=== PATIENT | male | born 1945 | race Caucasian/White ===

== ENCOUNTER 2018-11-14 09:55 | Inpatient (IN) | payer OTHER, SELFPAY ==
[2018-11-04 09:56] VITALS: BMI 43.9
[2018-11-14] VITALS (16 sets, daily range): BP systolic 87–146; BP diastolic 45–85; PULSE 62–83; RESP 10–92; TEMP 36.5–37.1; O2SAT 93–98; BMI 43.9
--- NOTE | 2018-11-14 | DI.RAD.S_ITS ---
PROCEDURE: XR HIP W PEL IF DONE LT 2V INDICATIONS: POST OPERATIVE LEFT HIP TECHNIQUE: AP pelvis and lateral view of the left hip acquired. COMPARISON: None. FINDINGS: Bones: Patient is status post left hip arthroplasty, with hardware components in expected positions. The hip joint appears congruent. The visualized bony structures appear intact. Soft tissues: Overlying postoperative changes are noted. No suspicious soft tissue densities. IMPRESSION: Post left total hip arthroplasty changes with anatomic left hip alignment. Dictated by: Elan Bryant M.D. on 11/14/2018 at 16:04 Approved by: Elan Bryant M.D. on 11/14/2018 at 16:04
--- NOTE | 2018-11-14 10:26 | DI.RAD.S_ITS ---
PROCEDURE: XR PELVIS 1-2V INDICATIONS: post op left YULIA TECHNIQUE: Intra-operative view of the pelvis and hip acquired. COMPARISON: None. FINDINGS: Bones: Intraoperative devices prior to placement of arthroplasty prostheses are in expected positions. No fractures or suspicious bony lesions. Soft tissues: Overlying surgical retractors are present, along with other intraoperative changes. IMPRESSION: Expected intraoperative appearance Dictated by: Saul Maravilla M.D. on 11/14/2018 at 14:48 Approved by: Saul Maravilla M.D. on 11/14/2018 at 14:48
[2018-11-14] MEDS: VANCOMYCIN 1,000 MG/200 ML PIGGYBACK 200 MG IV (10:30)
[2018-11-14] MEDS: LACTATED RINGERS 1,000 ML 42 ML IV ×2 (10:30→14:08)
[2018-11-14] MEDS: PREGABALIN 75 MG CAPSULE PO (10:42)
[2018-11-14] MEDS: CELECOXIB 200 MG CAPSULE PO (10:42)
[2018-11-14] MEDS: ACETAMINOPHEN 325 MG TABLET 975 MG PO ×2 (10:43→20:50)
--- NOTE | 2018-11-14 11:24 | P.OP_ITS ---
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 Non-operative management has failed and the patient has requested total hip replacement. The risks, benefits and alternatives to surgery were discussed with the patient prior to proceeding. Risks discussed included, but were not limited to, failure to relieve pain, leg length discrepancy, dislocation, stiffness, infection, nerve damage, deep venous thrombosis, pulmonary embolism, stroke, coma, heart attack, permanent paralysis and , as well as the potential need for eventual revision of the prosthetic. 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 The patient received pre-operative antibiotics and was taken to the operating room and placed on the operative table in the right lateral decubitus position after satisfactory anesthesia. A court magistrate out was performed. The left leg was prepared from the ankle to the iliac crest with ChloroPrep in the usual fashion and draped through sterile drapes. The hip was approached through an approximately 24 cm incision centered over the greater trochanter and curving gently posteriorly as it went proximally. This was carried sharply to the fascia piotr, which was divided and retracted with a self retaining retractor. The trochanteric bursa was excised with care being taken to avoid the sciatic nerve, which was identified and protected throughout the case. The short external rotators were incised and the capsulomuscular flap was raised and tagged for later repair. The hip was dislocated, and a femoral neck osteotomy performed approximately 15 mm above the lesser trochanter. Retractors were placed around the femur. The canal was opened with a box cutting osteotome, followed by a T handled reamer and a lateralizing reamer. The chili pepper broach was then used, followed by sequential broaching until there was good stability of the broach in the femur. Retractors were placed to expose the acetabulum. The labrum and central soft tissues were removed. Reaming was performed initially going up in 2 mm increments, then 1 mm increments until good bite was obtained with an odd sized reamer. The cup 1 mm larger than the last reamer was then inserted using the ap propriate anteversion guides. A trial neutral liner was placed. The broach was placed in the canal. A trial head and neck were then placed and the hip relocated and checked for leg length and stability. An intraoperative film confirmed the component position and no evidence of fracture. The patient was stable in the position of sleep, of squatting, and could be put through a range of motion with 45 degrees internal rotation without dislocation. At 90 degrees flexion, internal rotation to 70 was possible before dislocation. This was felt to be satisfactory and the appropriate components were opened, and the trials were removed. The acetabulum was further stabilized with a single 15mm screw. The acetabular liner was impacted into position. The final stem was then impacted into the prepared femoral canal. A brief Betadine soak was performed while trialing with head options. The hip was meticulously irrigated with normal saline. Finally the femoral head was impacted onto the stem. The acetabulum was cleared of all material and the hip relocated one final time. The capsulomuscular flap was then repaired to the greater trochanter though an awl hole using the tag sutures. The short external rotators were repaired with a nonabsorbable suture. A deep drain was placed and brought out anteriorly. The fascia piotr was closed with Vicryl. The subcutaneous layer was closed with barbed sutures and SteriStrips. A Nito dressing was applied and the patient was taken to recovery having tolerated the procedure well. Complications: none Post-operative Condition: stable Disposition: Acute Care Plan for aftercare: The patient will be maintained on a standard total hip replacement protocol with weight bearing as tolerated and posterior hip precautions. The patient will receive Aspirin and sequential compression devices for DVT prophylaxis. The patient will be discharged home when safe for the home environment.
--- NOTE | 2018-11-14 11:24 | PM.PREOP ---
Pre-operative Note Interval Note History & Physical reviewed/Exam performed by Physician: Yes Changes to H&P: No
[2018-11-14] MEDS: CEFAZOLIN 2 GM/100 ML FROZ.PIGGY IV ×2 (11:46→19:36)
[2018-11-14] MEDS: TRANEXAMIC ACID 1,000 MG VIAL 2000 MG INJ ×2 (12:45→14:31)
[2018-11-14] MEDS: BUPIVACAINE LIPOSOME 266 MG/20 ML VIAL INJ (12:46)
[2018-11-14] MEDS: BUPIVACAINE 0.25% W/ EPI 30 ML VIAL 60 ML INJ (12:46)
[2018-11-14] MEDS: SODIUM CHLORIDE IRRIG SOLUTION 250 ML, POVIDONE-IODINE SPONGE STICKS 1 APPLIC IRR (12:47)
[2018-11-14] MEDS: EPINEPHrine 1 MG/ML AMPUL IV (12:48)
--- NOTE | 2018-11-14 13:00 | SUR.OPER ---
Lateral on padded OR bed. Gel axillary roll. Arms secured on padded armboard with pillow supporting top arm. Padded hip positioner braces x4 - anterior and posterior chest and pelvis. Additional gel pad used anterior pelvis. Gel pad under bottom leg from knee to foot and secured with tape over sheet.
[2018-11-14] MEDS: OXYCODONE/ACETAMINOPHEN 5/325 TABLET 1 TAB PO (15:40)
--- NOTE | 2018-11-14 15:42 | SUR.PHASEI ---
Patient HWANG's x 4. Rates pain 04/21. Gave po pain medication prophylactically. Patient did not have a spinal. Meggang CDI.
[2018-11-14] MEDS: LACTATED RINGERS 1,000 ML 125 ML IV (16:00)
[2018-11-14] MEDS: ATORVASTATIN 10 MG TABLET PO (20:49)
[2018-11-14] MEDS: DOCUSATE 100 MG CAPSULE PO (20:49)
[2018-11-14] MEDS: ASPIRIN EC 81 MG TABLET PO (20:49)
[2018-11-14] MEDS: OXYCODONE IR 5 MG TABLET PO (21:51)
[2018-11-15] VITALS (7 sets, daily range): BP systolic 109–147; BP diastolic 56–76; PULSE 67–95; RESP 16–20; TEMP 36.8–37.4; O2SAT 93–96
[2018-11-15] MEDS: LACTATED RINGERS 1,000 ML 125 ML IV (01:01)
--- NOTE | 2018-11-15 01:09 | PC.NURSE ---
Addendum entered by Tonie Joya R.N. 11/15/18 05:01: Patient complained of 3/10 left hip pain earlier and was medicated with Oxycodone and now states pain is improving and down to 2/10 Addendum entered by Tonie Joya R.N. 11/15/18 02:09: When patient gotten up to urinate hemovac tubing became disconnected. Reconnected and hemovac recompressed; will monitor to see if drain still functional. Original Note: Patient is alert and oriented. Breath sounds CTA with O2 sat is 94%; using home CPAP. HRR. Denies nausea. BT present and abdomen is soft but denies flatus. Voiding per urinal; denies dysuria, frequency or urgency. Is able to move self in bed and gets up to bathroom with walker and 1 assist. PIERCE dressing to left hip is CDI; hemovac is intact and compressed. Denies any pain. CMS intact bilaterally. Wearing bilateral calf SCD's. Fall risk score is moderate; bed alarm is activated.
[2018-11-15] MEDS: CEFAZOLIN 2 GM/100 ML FROZ.PIGGY IV (04:03)
[2018-11-15] MEDS: OXYCODONE IR 5 MG TABLET PO ×3 (04:32→19:48)
[2018-11-15 05:10] LABS: Hematocrit 39.7 % (41-53); Hemoglobin 13.6 g/dL (13.5-17.5)
[2018-11-15] MEDS: DOCUSATE 100 MG CAPSULE PO ×2 (08:26→19:48)
[2018-11-15] MEDS: ACETAMINOPHEN 325 MG TABLET 975 MG PO ×2 (08:26→19:48)
[2018-11-15] MEDS: MELOXICAM 7.5 MG TABLET 15 MG PO (08:27)
[2018-11-15] MEDS: ASPIRIN EC 81 MG TABLET PO ×2 (08:27→19:47)
[2018-11-15] MEDS: FUROSEMIDE 20 MG TABLET PO (08:27)
[2018-11-15] MEDS: CITALOPRAM 20 MG TABLET PO (08:27)
[2018-11-15] MEDS: DOXAZOSIN 2 MG TABLET 1 MG PO (08:28)
--- NOTE | 2018-11-15 08:39 | PM.PNPO.1 ---
Subjective Subjective Date Patient Seen: 11/15/18 Time Patient Seen: 08:39 Interval history: Hospital day 2, postop day 1 following left posterior total hip arthroplasty by Dr. Hooker. Patient is been stable postoperatively. He states he has been out of bed to the bathroom 4 times since surgery. He has not had any physical therapy yet. Does need help getting in and out of bed. Patient lives in a 40 ft 5th wheel trailer and has 4 steps to get into the trailer. Also steps to go up to the bedroom area. He does have physical therapy scheduled at [facility] I does have a Hemovac in place which became during the night and was reattached. Exam Vital Signs (past 8 hours): - 11/15/18 05:37 11/15/18 07:35 Temperature 98.6 F 98.7 F Pulse Rate 71 67 Respiratory Rate 16 17 Blood Pressure 109/71 118/76 Pulse Oximetry 94 96 Oxygen Delivery Method CPAP Oxygen Flow Rate 0 Narrative Exam Narrative: Alert, oriented no acute distress resting in bed. Legs. The code dressing to left hip area is dry without drainage. Good VAC. Hemovac in place. No calf pain or swelling. Pulses symmetrical. Objective Labs Result Diagrams: 11/15/18 04:40 Labs: Laboratory Results - last 24 hr 11/15/18 04:40 Hgb 13.6 Hct 39.7 L Assessment & Plan Post-op Postoperative Procedures: Procedures Operation Date: 11/14/18 12:00 Actual Procedures Side Surgeon p Total Hip Arthroplasty Left Letitia Yvette Hooker MD plan: Will have patient work with PT today to make sure he is stable since he lives in a 5th wheel trailer and has steps to use. Anticipate DC Hemovac later today if drainage has stopped. Anticipate discharge home tomorrow if he is stable. He is a [facility] and does have prescription at home for oxycodone. Quality VTE Deep Vein Thrombosis/Pulmonary Embolism Present on Admission: No
--- NOTE | 2018-11-15 11:52 | PT.IIE ---
Current Diagnoses Unilateral primary osteoarthritis, left hip (11/14/18) Surgery Performed Operation Date: 11/14/18 12:00 Actual Procedures p Total Hip Arthroplasty(Left) - Letitia Hooker MD Surgical History (Last Updated 11/04/18 @ 10:18 by Pamela Tucker RN) H/O vasectomy (Acute) History of carpal tunnel release of both wrists (Acute) Hx of arthroscopy of left knee (Acute) Hx of hernia repair (Acute) Hx of tonsillectomy (Acute) Medical History (Last Updated 11/04/18 @ 14:14 by Pamela Tucker RN) Arthritis (Acute) BPH (benign prostatic hyperplasia) (Acute) Depression (Acute) Enlarged prostate (Acute) Hearing impaired (Acute) Hematuria (Acute) HLD (hyperlipidemia) (Acute) HTN (hypertension) (Acute) Impaired fasting glucose (Acute) Kidney stone (Acute ~09/2018) Lower back injury (Acute) Nasal fracture (Acute) RODOLFO on CPAP (Acute) Osteoarthritis (Acute) RBBB (right bundle branch block) (Acute) Physical Therapy Inpatient Evaluation/Re-Eval M1 PT/OT-IP Prior Functional Status Start: 11/15/18 08:29 Freq: NEEDED Status: Active Protocol: Document 11/15/18 09:25 (Rec: 11/15/18 11:51 [email or web address]) Medical Review Prior Functional Status Medical History Reviewed Yes Diet/Fluid Consistency Regular Communication Able to make needs known. No deficits noted. Mobility and Gait Pt has poor mobility and mostly home bound prior to sx due to his chronic LBP and B hip pain. Pt uses lift chair for sit to stand and power scooter for community mobility . He usually sleeps on his L side and get up from bed by holding the counter and bathroom next to him. He stated he uses furniture to cruise around his RV / quad cane. He also uses concessions manager and sock aid. Activities of Daily Living and IADL's Pt is mod independent for ADLs . does cooking, laundry and his dtr does changing propane bottle and grocery shop. Social History Household Members spouse Living Arrangements RV Number of Floors (Floors) One Floor Number of Stairs To Enter/Railing? 3 FANNY with B rails 2 inch step to bathroom. Home Environment Walk in Shower,Built-In Shower Seat Home Equipment Four Wheel Walker,Quad Cane, Crutches,Power Wheelchair/ Scooter,Raised Toilet Seat Without Armrests,Hand Held Shower,Logging Truck Driver,Sock Aid,Grab Bars In Shower Employment Status Retired Additional Social History Comment Pt lives with his in a [facility] in [place] across the [address] of [facility]. His dtr is the staff weapons officer of [facility] which he will have his outpatient rehab. M2 PT-IP Current Condition Start: 11/15/18 08:29 Freq: NEEDED Status: Active Protocol: Document 11/15/18 09:25 HH (Rec: 11/15/18 11:51 [email or web address]) Physical Therapy Current Condition Current Condition Evaluation Date 11/15/18 Treatment Diagnosis L YULIA( post), difficulty in walking Onset Date 11/14/18 Precautions Posterior Hip Precautions No Hip Flexion > 90 degrees,No Hip Internal Rotation,No Hip Adduction Weight Bearing Status Weight Bearing Status Weight Bear as Tolerated M3 PT-IP Subjective Start: 11/15/18 08:29 Freq: NEEDED Status: Active Protocol: Document 11/15/18 09:25 HH (Rec: 11/15/18 11:51 [email or web address]) Subjective Physical Therapy Visit Type Type Initial Evaluation Visit Start Time 09:20 Visit Stop Time 09:55 Total Visit Minutes 35 Number of ELDER ASSISTANT Visits 0 Physical Therapy Visit Comments Patient Comments Pt agrees to mobilize with PT Patient Goals To return home with his . Therapy Pain Assessment Pain When Pain Assessed At Rest Pain Present Pain Present Pain Reported Location Left Hip Intensity 3 Scale Used Numeric (1 - 10) Description Acute Pain Behaviors Facial Grimacing Pain Management Techniques Apply Cold,Modification of Treatment,Re-positioning, Timing of Activity with Medications M4 PT-IP Mobility and Gait Start: 11/15/18 08:29 Freq: NEEDED Status: Active Protocol: Document 11/15/18 09:25 HH (Rec: 11/15/18 11:51 [email or web address]) PT-Bed Mobility Assessment Supine to Sit Supine to Sit Maximum Assistance,2 Person Assistance,Head of Bed Elevated,Bedrails Scooting Scooting to Edge of Bed Maximum Assistance PT-Transfer Assessment Sit to and From Stand Sit to and from Stand Minimal Assistance,2 Person Assistance Equipment Transfer Assistive Device Gait Belt,Front Wheeled Walker Transfers Transfer Destination Bed,Chair,Toilet Transfer Technique Stand Step Pivot Transfer Ability Level of Assist Minimal Assistance,2 Person Assistance Comments Mobility Comments Pt's BP at 110s/ 60s and HR 80s during session. Pt stated he has a bad back and hip and getting OOB is the most difficult task for him. Pt needed to attempt 4 times for supine to sit with 1pa this session. PT had to assist with pivoting his LLE and support his upper body due to his pain and poor core strength. Pt appears very SOB during trials and needed 2 mins for rest. Pt also needed max A to use bed pad for scooting towards EOB. However, he was able to stand up from EOB with min A but PT had to stabilize walker for pt to pull to stand. Pt amb from EOB to bathroom and out to hallway for a total of 50 feet. Pt amb slowly with step to pattern and he did state My knee is getting less stiff. Pt then transferred back to bedside chair with poor eccentric control. Gait Assessment Gait Gait Assistance Required: Contact Guard Assist Distance (Feet) 50 Able to Maintain Weight Bearing Status Yes During Gait Assistive Devices Assistive Device None,Gait Belt,Front Wheeled Walker Orthotic/Prosthetic Devices or Brace: No Gait Deviations General Gait Pattern Antalgic,Decreased Stride Length,Decreased Feet Clearance,Step-to Gait Factors Limiting Gait Function Factors Limiting Gait Function Decreased Activity Tolerance, Decreased Strength,Limited Range of Motion,Pain,Poor Balance,Poor Safety Awareness Comments Gait Comments see mobility comments Stair Climbing Assessment Comments Stair Climbing Comments did not assess PT-Balance Assessment Sitting Balance and Reactions Static Sitting Balance Ability Normal Dynamic Sitting Balance Ability Normal Standing Balance and Reactions Static Standing Balance Ability Good Dynamic Standing Balance Ability Good Device Used FWW M5 PT-IP Objective Assessments Start: 11/15/18 08:29 Freq: NEEDED Status: Active Protocol: Document 11/15/18 09:25 (Rec: 11/15/18 11:51 [email or web address]) Orientation Orientation/Cognition Level of Alertness Alert Orientation Name,Age,Birthday,Month,Date, Year,Day of Week,Place, Situation Language Function Ability No Deficits Noted Safety Awareness Understands Safety Issues Memory Description No Deficits Noted Gross Range of Motion Upper Extremity ROM Assessment Within Functional Limits Lower Extremity ROM Assessment Left Impaired Strength Upper Extremity Strength Assessment Within Functional Limits Lower Extremity Strength Assessment Left Impaired Hip 4-/5 Knee 3+/5 Coordination Assessment Gross Coordination Gross Coordination WNL Sensation Assessment Sensation Gross Sensation WNL Muscle Tone Muscle Tone WNL Yes M6 PT-IP Treatment Start: 11/15/18 08:29 Freq: NEEDED Status: Active Protocol: Document 11/15/18 09:25 HH (Rec: 11/15/18 11:51 [email or web address]) Physical Therapy Treatment Exercises Exercises Quad Sets,Heel Slides Education Education Provided Precautions,Weight Bearing Status,Post-Op Packet,Safety M7 PT-IP Assessment and Plan Start: 11/15/18 08:29 Freq: NEEDED Status: Active Protocol: Document 11/15/18 09:25 HH (Rec: 11/15/18 11:51 [email or web address]) PT Summary Assessment and Plan Potential Rehabilitation Potential Excellent Status of Condition at Evaluation Evolving Summary Impairments Pain,ROM,Strength,Balance,Bed Mobility,Transfers,Gait, Activity Tolerance Assessment Summary Pt is a low complexity who is s/p L YULIA with posterior approach from yesterday. Upon assessment, pt has significant difficulty performing supine to sit (max A x 2) due to his LBP, B hip pain. He also needed PT's assistance to stabilize the walker for pt to pull to stand. He did amb approx 50 ft with CGA but overall he is very slow with poor activity tolerance due to his inactive lifestyle (pt was mostly homebound and very sedentary). However, pt has adequate DMEs at home with multiple sit to stand lifters and recliners that he could sleep and transfers without difficulty, but he has to be able to climb 3 FANNY with B rails CGA prior to d/c home ( his RV). Otherwise, SNF will be a good option to improve his mobility and strength. Goals Bed Mobility Goal Minimal Assistance Transfer Goal Contact Guard Assistance,Front Wheeled Walker Gait Goal Contact Guard Assistance,Front Wheel Walker Gait Distance 100 Other Goals climb 3 steps with B rails CGA Days to Meet Goals 5 Frequency of Treatment Frequency Of Treatment Twice a Day Treatment Plan Physical Therapy Treatment Plan Bed Mobility Training,Transfer Training,Gait Training, Therapeutic Exercise,Balance Retraining,Post Op Education, Discharge Planning,Hot or Cold Pack,Neuromuscular Re-ed Other Recommendations and Next Treatment Bed mob as kalli Focus sit to stand training gait training as kalli Recommendations To Nursing Amount of Assist Needed 2 Person Assist Discharge Recommendations PT Discharge Recommendations Home with 04/09 Assist,SNF Rehab,Outpatient PT Other Discharge Recommendations Depends on pt progress, SNF if pt unable to clear steps for his RV.
--- NOTE | 2018-11-15 14:50 | PT.IPTN ---
Current Diagnoses Unilateral primary osteoarthritis, left hip (11/14/18) Surgery Performed Operation Date: 11/14/18 12:00 Actual Procedures p Total Hip Arthroplasty(Left) - Letitia Hooker MD Physical Therapy Treatment Note M2 PT-IP Current Condition Start: 11/15/18 08:29 Freq: NEEDED Status: Active Protocol: Document 11/15/18 09:25 HH (Rec: 11/15/18 11:51 HH [email or web address]) Physical Therapy Current Condition Current Condition Evaluation Date 11/15/18 Treatment Diagnosis L YULIA( post), difficulty in walking Onset Date 11/14/18 Precautions Posterior Hip Precautions No Hip Flexion > 90 degrees,No Hip Internal Rotation,No Hip Adduction Weight Bearing Status Weight Bearing Status Weight Bear as Tolerated M3 PT-IP Subjective Start: 11/15/18 08:29 Freq: NEEDED Status: Active Protocol: Document 11/15/18 14:50 GGD (Rec: 11/15/18 15:56 GGD [id number]) Subjective Physical Therapy Visit Type Type Treatment Note Visit Start Time 14:14 Visit Stop Time 14:53 Total Visit Minutes 39 Number of CHICKEN CATCHER Visits 1 Physical Therapy Visit Comments Patient Comments Pt willing to work with therapy. Pt plans on sleeping in lift chair. Therapy Pain Assessment Pain When Pain Assessed At Rest Pain Present Pain Present Pain Reported M4 PT-IP Mobility and Gait Start: 11/15/18 08:29 Freq: NEEDED Status: Active Protocol: Document 11/15/18 14:50 GGD (Rec: 11/15/18 15:56 GGD [id number]) PT-Transfer Assessment Sit to and From Stand Sit to and from Stand Minimal Assistance,1 Person Assistance,Use of Upper Extremities Equipment Transfer Assistive Device Gait Belt,Front Wheeled Walker Orthotic/Prosthetic Devices or Brace: Yes Transfers Transfer Destination Bed Transfer Ability Level of Assist Minimal Assistance,1 Person Assistance,Use of Upper Extremities Gait Assessment Gait Gait Assistance Required: Contact Guard Assist Distance (Feet) 70 Able to Maintain Weight Bearing Status Yes During Gait Assistive Devices Assistive Device Gait Belt,Front Wheeled Walker Gait Deviations General Gait Pattern Antalgic,Decreased Stride Length,Decreased Feet Clearance,Step-to Gait Factors Limiting Gait Function Factors Limiting Gait Function Decreased Activity Tolerance, Decreased Strength,Limited Range of Motion,Pain,Poor Balance,Poor Safety Awareness M5 PT-IP Objective Assessments Start: 11/15/18 08:29 Freq: NEEDED Status: Active Protocol: Document 11/15/18 09:25 HH (Rec: 11/15/18 11:51 HH [email or web address]) Orientation Orientation/Cognition Level of Alertness Alert Orientation Name,Age,Birthday,Month,Date, Year,Day of Week,Place, Situation Language Function Ability No Deficits Noted Safety Awareness Understands Safety Issues Memory Description No Deficits Noted Gross Range of Motion Upper Extremity ROM Assessment Within Functional Limits Lower Extremity ROM Assessment Left Impaired Strength Upper Extremity Strength Assessment Within Functional Limits Lower Extremity Strength Assessment Left Impaired Hip 4-/5 Knee 3+/5 Coordination Assessment Gross Coordination Gross Coordination WNL Sensation Assessment Sensation Gross Sensation WNL Muscle Tone Muscle Tone WNL Yes M6 PT-IP Treatment Start: 11/15/18 08:29 Freq: NEEDED Status: Active Protocol: Document 11/15/18 14:50 GGD (Rec: 11/15/18 15:56 GGD [id number]) Physical Therapy Treatment Exercises Exercises Ankle Pumps,Gluteal Sets,Quad Sets,Short Arc Quads Education Education Provided Precautions M7 PT-IP Assessment and Plan Start: 11/15/18 08:29 Freq: NEEDED Status: Active Protocol: Document 11/15/18 14:50 GGD (Rec: 11/15/18 15:56 GGD [id number]) PT Summary Assessment and Plan Summary Assessment Summary Pt improving slowly with mobility. He had heavy use of UE on FWW with gait. He plans on sleeping in lift chair due to difficulty with bed mobility. Frequency of Treatment Frequency Of Treatment Twice a Day Treatment Plan Physical Therapy Treatment Plan Bed Mobility Training,Transfer Training,Gait Training, Therapeutic Exercise,Balance Retraining,Post Op Education, Discharge Planning,Hot or Cold Pack,Neuromuscular Re-ed Other Recommendations and Next Treatment stair training. Focus Recommendations To Nursing Amount of Assist Needed 1 Person Assist Discharge Recommendations PT Discharge Recommendations Home with Assistance, Outpatient PT Equipment Needed for Home Before FWW Discharge
--- NOTE | 2018-11-15 15:48 | OT.IP.TRT ---
Current Diagnoses Unilateral primary osteoarthritis, left hip (11/14/18) Surgery Performed Operation Date: 11/14/18 12:00 Actual Procedures p Total Hip Arthroplasty(Left) - Letitia Hooker MD Occupational Therapy Treatment Note M3 OT- IP Subjective and Pain Start: 11/15/18 15:44 Freq: Status: Active Protocol: Document 11/15/18 15:44 [facility] (Rec: 11/15/18 15:48 [facility] [id number]) OT- Subjective Occupational Therapy Visit Type Type Patient Refusal Notes Pt just finished seeing PLASTIC JOINT MAKER , tired and not wanting to get up again. Spoke to pt about OT needs and initiated training for hip precaution needs. Pt has all equipment needs. Therefore to do OT eval and shower tomorrow with pt. NO charge.
[2018-11-15] MEDS: TRAZODONE 100 MG TABLET PO (19:48)
[2018-11-15] MEDS: ATORVASTATIN 10 MG TABLET PO (19:49)
[2018-11-16 01:56] VITALS: BP 125/55; PULSE 79; RESP 16; TEMP 36.8; O2SAT 96
--- NOTE | 2018-11-16 02:00 | PC.NURSE ---
Addendum entered by Tonie Joya R.N. 11/16/18 05:55: Has not been up tonight to void but denies urge to void. States I'll pee when I get up. Denies any pain this morning. States he slept well. Original Note: Patient is alert and oriented. Breath sounds CTA with RA sat of 96%; using CPAP to sleep. HRR. Denies nausea. BT present and is passing flatus. Voiding per urinal; denies dysuria, frequency or urgency. Able to move self in bed. Transfers out of bed requiring 2 assist but once standing up is able to stand with walker and 1 assist. PIERCE dressing intact with no drainage. Hemovac no longer compressed/suctioning so d'cd. Denies pain in hip. Wearing bilateral calf SCD's. CMS is intact. Fall risk score is moderate; bed alarm is activated.
[2018-11-16 06:22] VITALS: BP 131/58; PULSE 85; RESP 16; TEMP 36.9; O2SAT 94
[2018-11-16 08:35] VITALS: BP 137/60; PULSE 87; RESP 20; TEMP 37.9; O2SAT 95
[2018-11-16] MEDS: ASPIRIN EC 81 MG TABLET PO (08:59)
[2018-11-16] MEDS: OXYCODONE IR 5 MG TABLET PO (08:59)
[2018-11-16] MEDS: CITALOPRAM 20 MG TABLET PO (08:59)
[2018-11-16] MEDS: DOCUSATE 100 MG CAPSULE PO (08:59)
[2018-11-16] MEDS: MELOXICAM 7.5 MG TABLET 15 MG PO (08:59)
[2018-11-16] MEDS: FUROSEMIDE 20 MG TABLET PO (08:59)
[2018-11-16] MEDS: DOXAZOSIN 2 MG TABLET 1 MG PO (09:00)
[2018-11-16] MEDS: ACETAMINOPHEN 325 MG TABLET 975 MG PO (09:00)
[2018-11-16] MEDS: SODIUM CHLORIDE 0.9% FLUSH 10 ML IV (09:01)
--- NOTE | 2018-11-16 10:04 | PC.NURSE ---
Pt just had a shower, he is a 2 person assist to get up from bed to walker. He is more of a 1 person assist when he is up and walking. He had a shower and did most of his washing by himself. Back to the chair and sitting up. He does have a problem with sliding down in his chair and bed constantly. states that he does this often. She is here to do stairs with physical therapy. Given 1 oxycodone earlier for pain and working with PT...Helpful with discomfort.
[2018-11-16 11:30] VITALS: BP 124/63; PULSE 88; RESP 22; TEMP 37.1; O2SAT 94
--- NOTE | 2018-11-16 12:27 | CM.DANOTE ---
DCP Assessment: EMR reviewed. Patient is a 73 year old male who was admitted to IP for Lt YULIA preformed by Dr. Hooker. Met with patient and at bedside explained CM/RNs role. Pt is alert and oriented. Pt is I for ADL's at baseline. Patient and (William) live in a 5th wheel trailer in [place] and is a lal path patient. Patient had a PT evaluation and was cleared to return home with assistance and has OP PT set up [facility] week. Pt has FWW at home and a cane to help with stairs. Insurance: 1st payer: [place] 2nd: Self pay DC plan: Is for Patient to return home with assistance from (william) and F/U with OP PT in one week. NO identified d/c planning needs noted at this time. Richelle Hooker RN Discharge Planning/Care Management CM Discharge Assessment Start: 11/16/18 12:26 Freq: Status: Active Protocol: Document 11/16/18 12:26 HS (Rec: 11/16/18 12:27 [id number]) Discharge Planning Assessment Assigned Board Certified Behavioral Analyst Richelle Hooker RN DPOA/Assigned Designee Name William Conway Contact Information [phone] Advance Directives? Yes Advance Directives on File No History Provided By Patient,Family Member Prior Living Arrangements RV Household Members spouse Type of transporation used prior to Drives own vehicle admit Independent with ADL's Yes Is patient alert and oriented? Yes Caregiver for Another No Patient/Family Preference OP PT Therapy Discharge Plan Home Whiteboard Updated in Patient Room with Yes name and ext. # of Board Certified Behavioral Analyst Review Status In Process Next Review Type Continued Stay Review Pre-Anesthesia Assessment Start: 11/04/18 09:56 Freq: Status: Complete Protocol: Document 11/04/18 09:56 CAB (Rec: 11/04/18 10:58 CAB [id number]) Pre-Anesthesia Assessment Patient Information Reviewed Via Phone Assessment Assessment Completed With Patient Diagnostic Results BMP/CMP,CBC,EKG,Urinalysis Comment Outside labs/EKG scanned to record Primary Care Provider Viki Reddy Medical Clearance Received Yes Seen Specialist in Last 12 Months Yes Specialist Seen Orthopedist,Urologist Comment Pre-op clearance 04/23/18 scanned to record Primary Language [place]i [employer] Clerk Required No Height 175.26 cm Weight 135.171 kg Body Mass Index (BMI) 43.9 Hearing Ability Hard of Hearing,Use of Hearing Aid Visual Assist Glasses Dentition Type Teeth, Natural Present,Teeth, Broken,Partial- Lower Barriers to Learning Auditory,Memory Hx Anesthesia Reactions No Hx Family Anesthesia Reaction No Hx Malignant Hyperthermia No Hx Blood Transfusions No Anesthesia Review Requested No alcohol intake never Smoking Status Former smoker Tobacco type cigarettes how long ago did patient quit smoking Quit 25 years ago Substance Use Type other Comment CBD gummie Pain Present Pain Reported Musculoskeletal Symptoms Abnormal Gait,Back Pain, Difficulty Walking,Joint Pain, Limited Range of Motion,Muscle Weakness History of Falling (Recent or History of No ) Patient is completely paralyzed or No completely immobile Prosthesis or Orthotic Device Cane,Crutches Mental Status Oriented to own ability Is patient on oxygen? No Does patient have MEJIA/SOB Yes Hx Sleep Apnea Yes CPAP/BIPAP use prescribed and used routinely Will Bring CPAP/BIPAP DOS Yes Currently Taking a Beta Marah No Can You Climb a Flight of Stairs Without No SOB Hx Chest Pain No Hx SOB Yes Hx Syncope or Dizziness No Anti-Coagulant Therapy No Has a Multi Line Claims Adjuster No Cardiac Testing Yes: Zulahooiscan @ [facility] 05/21/18-low risk, EF 61% Hx Pacemaker/ICD No Pacemaker Rep Required? No Comment Lexiscan scanned to record Diet Type At Home Regular dysphagia No Urinary Catheter Present No Hx Urinary Self Catheterization No Diabetes No HgbA1C 5.3 Date 09/20/18 Hx Drug Resistant Organism No Presence of External or Internal Medical Yes: CPAP Devices Have you traveled outside the [facility] in the last 30 days? Marital Status Lives With spouse Prior Living Arrangements RV Number of Floors (Floors) One Floor Support System Child/Children,Spouse Does the Patient Have Assistance After Yes Surgery Patient Discharge Plan Description Return Home Comment Pt has not been advised on length of stay per Surgeon Feels Safe in Current Environment Yes Been Physically Hurt or Threatened By a No Person in Current Environment Do you have thoughts of harming yourself None or others? Are you currently considering suicide? No Do you have a plan to hurt yourself or No Plan others? Do You Have Any Spiritual Beliefs That No May Affect Your HC Choices? Do You Have Any Cultural Practices That No May Affect Your HC Choices? Comment Amish Who Can We Speak to About Patient's Care Family, friends Identifying Code for Release of Patient Declines to issue Information Health Care Proxy/Next of Kin William () Health Care Proxy Emergency Contact Name William () Emergency Contact Advance Directives? Yes Advance Directives on File No Requested Patient Bring Advanced Yes Directives DOS PAC Instructions Bring CPAP/BIPAP,Durable medical equipment,Medications to take/avoid,Nasal antibiotic ,No ETOH/petroleum product on skin DOS,NPO,Post-op transportation,Pre-surgical wash,Sturdy shoes/comfortable clothes,Do not bring valuables and remove jewelry
--- NOTE | 2018-11-16 13:03 | PT.IPTN ---
Current Diagnoses Unilateral primary osteoarthritis, left hip (11/14/18) Surgery Performed Operation Date: 11/14/18 12:00 Actual Procedures p Total Hip Arthroplasty(Left) - Letitia Hooker MD Physical Therapy Treatment Note M2 PT-IP Current Condition Start: 11/15/18 08:29 Freq: NEEDED Status: Active Protocol: Document 11/16/18 11:25 MB (Rec: 11/16/18 13:03 MB [id number]) Physical Therapy Current Condition Precautions Posterior Hip Precautions No Hip Flexion > 90 degrees,No Hip Internal Rotation,No Hip Adduction Weight Bearing Status Weight Bearing Status Weight Bear as Tolerated M3 PT-IP Subjective Start: 11/15/18 08:29 Freq: NEEDED Status: Active Protocol: Document 11/16/18 11:25 MB (Rec: 11/16/18 13:03 MB [id number]) Subjective Physical Therapy Visit Type Type Treatment Note Visit Start Time 11:25 Visit Stop Time 11:50 Total Visit Minutes 25 Number of SCREENER OPERATOR Visits 1 Physical Therapy Visit Comments Patient Comments Let's go home! Patient Goals To go home today. M4 PT-IP Mobility and Gait Start: 11/15/18 08:29 Freq: NEEDED Status: Active Protocol: Document 11/16/18 11:25 MB (Rec: 11/16/18 13:03 MB [id number]) PT-Transfer Assessment Sit to and From Stand Sit to and from Stand Independent Equipment Transfer Assistive Device Gait Belt,Front Wheeled Walker Transfers Transfer Destination Wheelchair Transfer Ability Level of Assist Independent Comments Mobility Comments Heavy use of UEs Gait Assessment Gait Gait Assistance Required: Independent Distance (Feet) 20 Able to Maintain Weight Bearing Status Yes During Gait Assistive Devices Assistive Device Gait Belt,Front Wheeled Walker Gait Deviations General Gait Pattern Decreased Stride Length, Decreased Feet Clearance,Step- to Gait Factors Limiting Gait Function Factors Limiting Gait Function Decreased Activity Tolerance, Decreased Strength,Limited Range of Motion,Pain,Poor Balance,Poor Safety Awareness Stair Climbing Assessment Evaluation Level of Assist On Stairs Standby Assistance Devices Stair Climbing Assistive Devices Left Railing,Right Railing Technique/Endurance Stair Climbing Direction Ascend Stair Climbing Technique Step to Step Number of Steps Climbed 3 Stair Climbing Set # Repetitions (reps) 1 Comments Stair Climbing Comments Ascend and descend 3 steps with 2 rails and step-to edouard, SBA and pt will have SBA at home PT-Balance Assessment Sitting Balance and Reactions Static Sitting Balance Ability Normal Dynamic Sitting Balance Ability Normal Standing Balance and Reactions Static Standing Balance Ability Good Dynamic Standing Balance Ability Good Device Used FWW M5 PT-IP Objective Assessments Start: 11/15/18 08:29 Freq: NEEDED Status: Active Protocol: Document 11/15/18 09:25 HH (Rec: 11/15/18 11:51 HH [id number]) Orientation Orientation/Cognition Level of Alertness Alert Orientation Name,Age,Birthday,Month,Date, Year,Day of Week,Place, Situation Language Function Ability No Deficits Noted Safety Awareness Understands Safety Issues Memory Description No Deficits Noted Gross Range of Motion Upper Extremity ROM Assessment Within Functional Limits Lower Extremity ROM Assessment Left Impaired Strength Upper Extremity Strength Assessment Within Functional Limits Lower Extremity Strength Assessment Left Impaired Hip 4-/5 Knee 3+/5 Coordination Assessment Gross Coordination Gross Coordination WNL Sensation Assessment Sensation Gross Sensation WNL Muscle Tone Muscle Tone WNL Yes M6 PT-IP Treatment Start: 11/15/18 08:29 Freq: NEEDED Status: Active Protocol: Document 11/16/18 11:25 MB (Rec: 11/16/18 13:03 MB [id number]) Physical Therapy Treatment Other Treatments Other Treatment Performed Transfers from chair to walker and back down, gait training, stair training and pt is able to recall 3/3 posterior hip precautions. Majority of time gait training M7 PT-IP Assessment and Plan Start: 11/15/18 08:29 Freq: NEEDED Status: Active Protocol: Document 11/16/18 11:25 MB (Rec: 11/16/18 13:03 MB [id number]) PT Summary Assessment and Plan Summary Assessment Summary Progressing towards goals, planning to d/c home today. Frequency of Treatment Frequency Of Treatment Twice a Day Treatment Plan Physical Therapy Treatment Plan Bed Mobility Training,Transfer Training,Gait Training, Therapeutic Exercise,Balance Retraining,Post Op Education, Discharge Planning,Hot or Cold Pack,Neuromuscular Re-ed Other Recommendations and Next Treatment stair training. Focus Discharge Recommendations PT Discharge Recommendations Home with Assistance, Outpatient PT Other Discharge Recommendations Use BR in 1/2 bath at this time and take bucket bath until able to go up steps without rails to bedroom and bathroom. He to sleep in recliner Equipment Needed for Home Before FWW Discharge
--- NOTE | 2018-11-16 13:03 | PM.DS.1 ---
History of Present Illness History of Present Illness Date Patient Seen: 11/16/18 Time Patient Seen: 13:04 Chief complaint: [id number] Narrative: The patient has had progressively worsening left hip pain with radiographic changes consistent with arthritis. Non-operative management has failed and the patient has requested total hip replacement. The risks, benefits and alternatives to surgery were discussed with the patient prior to proceeding. Risks discussed included, but were not limited to, failure to relieve pain, leg length discrepancy, dislocation, stiffness, infection, nerve damage, deep venous thrombosis, pulmonary embolism, stroke, coma, heart attack, permanent paralysis and , as well as the potential need for eventual revision of the prosthetic. Discharge Providers Provider Date of admission: 11/14/18 09:55 Discharge Date: 11/16/18 Consults: 11/14/18 10:26 Consult to Anesthesiology Routine Comment: Consulting Provider: Anesthesiologist Reason for consultation: Regional block for post operative pain control 11/14/18 10:42 Consult to Respiratory Therapy Evaluate & Treat Comment: Physician Instructions: Evaluate and treat 11/14/18 16:28 Consult to Discharge Planning Routine Comment: Consult to Physical Therapy Evaluate & Treat Comment: Physician Instructions: post op YULIA protocol Consult to Respiratory Therapy Evaluate & Treat Comment: Physician Instructions: Evaluate and treat 11/15/18 11:42 Consult to Occupational Therapy Evaluate & Treat Comment: Physician Instructions: Evaluate and treat Discharge provider: Stephanie Adkins PA-C Summary Hospital Course Discharge Diagnosis: s/p left YULIA sleep apnea Obesity Hyperlipidemia Depression Degenerative joint disease BPH Hospital Course: Dated was admitted for left total hip arthroplasty with Dr. Hooker. He was initially slow to mobilize but on postop day 2. He was ready to go home. He was eating and voiding without difficulty or assistance. He worked with physical therapy throughout his stay. ASA for DVT prophylaxis. Dressing with CDI discharge. Drains were removed prior to discharge. Status at Discharge Functional status at discharge: uses cane/walker Exam Vital Signs (past 8 hours): - 11/16/18 06:22 11/16/18 08:35 11/16/18 11:30 Temperature 98.5 F 100.2 F H 98.8 F Pulse Rate 85 87 88 Respiratory Rate 16 20 22 Blood Pressure 131/58 L 137/60 124/63 Pulse Oximetry 94 95 94 Oxygen Delivery Method CPAP Oxygen Flow Rate 0 Narrative Exam Narrative: Patient lying in bed in no acute distress. Alert and orient x3. Calves are soft, compressible, nontender bilaterally. Pulses are symmetrical. Dressing on left hip is CDI. Sensation intact to light touch throughout bilateral lower extremities. Able to actively dorsiflex and plantar flex. Pain is well-controlled last night. Objective Labs Result Diagrams: 11/15/18 04:40 Discharge Plan Discharge Plan Patient Disposition: Home Discharge Med Rec/Prescriptions Prescriptions: New aspirin 81 mg Tablet,Delayed Release (Dr/Ec) 81 mg PO BID Qty: 60 RF: 0 docusate sodium [DOK] 100 mg Capsule 100 mg PO BID Qty: 60 RF: 0 Continued atorvastatin 10 mg Tablet 10 mg PO BEDTIME RF: 0 doxazosin 1 mg Tablet 1 mg PO DAILY RF: 0 meloxicam 15 mg Tablet 15 mg PO DAILY RF: 0 acetaminophen [Acetaminophen Pain Relief] 500 mg Tablet 1,000 mg PO DAILY PRN (Reason: Pain) RF: 0 citalopram 20 mg Tablet 20 mg PO DAILY RF: 0 trazodone 100 mg Tablet 100 mg PO BEDTIME RF: 0 furosemide 20 mg Tablet 20 mg PO QAM RF: 0 Visit Report/Discharge Packet Instructions: DI for Hip Replacement, Oxycodone Discharges patient from system. Discharge Date/Time: 11/16/18 13:50 Quality VTE Deep Vein Thrombosis/Pulmonary Embolism Present on Admission: No
--- NOTE | 2018-11-16 14:32 | OT.IP.EVAL ---
Current Diagnoses Unilateral primary osteoarthritis, left hip (11/14/18) Surgery Performed Operation Date: 11/14/18 12:00 Actual Procedures p Total Hip Arthroplasty(Left) - Letitia Hooker MD Past Medical History (Last Updated 11/04/18 @ 14:14 by Pamela Tucker RN) Arthritis (Acute) BPH (benign prostatic hyperplasia) (Acute) Depression (Acute) Enlarged prostate (Acute) Hearing impaired (Acute) Hematuria (Acute) HLD (hyperlipidemia) (Acute) HTN (hypertension) (Acute) Impaired fasting glucose (Acute) Kidney stone (Acute ~09/2018) Lower back injury (Acute) Nasal fracture (Acute) RODOLFO on CPAP (Acute) Osteoarthritis (Acute) RBBB (right bundle branch block) (Acute) Surgical History (Last Updated 11/04/18 @ 10:18 by Pamela Tucker RN) H/O vasectomy (Acute) History of carpal tunnel release of both wrists (Acute) Hx of arthroscopy of left knee (Acute) Hx of hernia repair (Acute) Hx of tonsillectomy (Acute) Occupational Therapy Inpatient Evaluation/Re-Eval M1 PT/OT-IP Prior Functional Status Start: 11/15/18 08:29 Freq: NEEDED Status: Active Protocol: Document 11/16/18 14:22 CGR (Rec: 11/16/18 14:31 CGR [email or web address]) Medical Review Prior Functional Status Medical History Reviewed Yes Diet/Fluid Consistency Regular Communication Able to make needs known. No deficits noted. Mobility and Gait Pt has poor mobility and mostly home bound prior to sx due to his chronic LBP and B hip pain. Pt uses lift chair for sit to stand and power scooter for community mobility . He usually sleeps on his L side and get up from bed by holding the counter and bathroom next to him. He stated he uses furniture to cruise around his RV / quad cane. He also uses drug abuse counselor and sock aid. Activities of Daily Living and IADL's Pt is mod independent for ADLs . does cooking, laundry and his dtr does changing propane bottle and grocery shop. Social History Household Members spouse Living Arrangements RV Number of Stairs To Enter/Railing? 3 to enter with B railings the once inside the 5th wheel he must go up 2 steps to the bedroom and full bathroom without handrails. 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 M2 OT-IP Current Condition Start: 11/15/18 15:44 Freq: Status: Active Protocol: Document 11/16/18 14:22 CGR (Rec: 11/16/18 14:31 CGR [id number]) Occupational Therapy Current Condition Current Condition Evaluation Date 11/16/18 Treatment Diagnosis L YULIA posterior Diagnosis Onset Date 11/15/18 Post Operative Precautions Posterior Hip Precautions No Hip Flexion > 90 degrees,No Hip Internal Rotation,No Hip Adduction Weight Bearing Status Weight Bearing Status Weight Bear as Tolerated M3 OT- IP Subjective and Pain Start: 11/15/18 15:44 Freq: Status: Active Protocol: Document 11/16/18 14:22 CGR (Rec: 11/16/18 14:31 CGR [email or web address]) OT- Subjective Occupational Therapy Visit Type Type Initial Evaluation Visit Start Time 10:50 Visit Stop Time 11:24 Total Visit Minutes 34 Notes Pt's present throughout Occupational Therapy Visit Comments Patient Comments I have been figuring out how to move around my space for a long time. OT Pain Assessment Pain When Pain Assessed At Rest Pain Present Pain Present Pain Reported Location Left Hip Intensity 2 Scale Used Numeric (1 - 10) Management Techniques Distraction M4 OT- IP ADL's Start: 11/15/18 15:44 Freq: Status: Active Protocol: Document 11/16/18 14:22 CGR (Rec: 11/16/18 14:31 CGR [id number]) OT [id number] Comments OT Self-Feeding Comments Not meal time OT ADL-Grooming General Evaluation Grooming Ability Independent OT ADL-Oral Care Comments Oral Care Comments Not performed OT ADL-Dressing Comments OT Dressing Comments Not assessed, pt states he uses his hip kit for LB dressing at baseline and does not need to be retrained. OT ADL-Toileting General Evaluation Toileting Ability Independent Devices Toileting Assistive Devices Raised Toilet Seat OT ADL-Bathing Comments OT Bathing Comments Just performed with Nursing. M5 OT- IP IADL's Start: 11/15/18 15:44 Freq: Status: Active Protocol: Document 11/16/18 14:22 CGR (Rec: 11/16/18 14:31 CGR [email or web address]) OT-Instrumental Activities of Daily Living Deficits IADL Deficits Identified Deficits Home Safety Awareness Awareness of Need for Assistance at Home Good Awareness Ability to Problem Solve Emergency Able to Problem Solve Situations Medication Management Medication Management No Deficits Identified Money Management Money Management No Deficits Identified Meal Preparation Meal Preparation Caregiver Provides Assist Processing Associate Processing Associate Caregiver Provides Assist Driving Driving Comments Pt states that he will not be driving for some time. M6 OT- IP Functional Cognition Start: 11/15/18 15:44 Freq: Status: Active Protocol: Document 11/16/18 14:22 CGR (Rec: 11/16/18 14:31 CGR [email or web address]) Cognitive Factors Limiting Selfcare Function Cognitive Ability Level of Alertness Alert Patient Orientation Name,Age,Birthday,Month,Date, Year,Day of Week,Place, Situation Attention Span Ability Capable of Focused Attention Ability to Follow Commands Able to Follow Multi-Step Commands Memory Description No Deficits Noted Safety Awareness No Deficits Noted Problem Solving Ability No deficits Noted Executive Function Ability No Deficits Noted Abstract Thinking Ability No Deficits Noted OT- Vision and Hearing OT- Hearing Assessment OT- Hearing Assessment WFL OT- Vision Assessment Visual Acuity WFL,Glasses All The Time Visual Attentiveness WFL Occular Pursuits WFL Visual Convergence WFL Visual Baker WFL Vision Assessment Comments Pt has nastagmus with visual persuits. M7 OT- IP Mobility and Balance Start: 11/15/18 15:44 Freq: Status: Active Protocol: Document 11/16/18 14:22 CGR (Rec: 11/16/18 14:31 CGR [email or web address]) OT-Transfer Assessment Sit to and From Stand Sit to and from Stand Standby Assistance Transfers Transfer Ability Standby Assistance Technique Transfer Destination Chair,Toilet Transfer Technique Stand Step Pivot Devices Transfer Assistive Devices Gait Belt,Front Wheeled Walker OT- Gait Assessment Gait Gait Assistance Required: Standby Assistance Assistive Devices Assistive Device Gait Belt,Front Wheeled Walker Comments Gait Ability Comments mobility around the room OT- Balance Assessment Sitting Balance and Reactions Static Sitting Balance Ability Good Dynamic Sitting Balance Ability Fair Standing Balance and Reactions Static Standing Balance Ability Good Dynamic Standing Balance Ability Fair M8 OT- IP Objective Assessments Start: 11/15/18 15:44 Freq: Status: Active Protocol: Document 11/16/18 14:22 CGR (Rec: 11/16/18 14:31 CGR [email or web address]) OT Gross Range of Motion Upper Extremity Range of Motion Assessment Within Functional Limits OT Strength Upper Extremity Strength Assessment Within Functional Limits Comments Strength Comments 5/5 OT- Coordination Assessment Upper Extremity Finger to Nose Test Within Functional Limits Finger Tapping Test Within Functional Limits OT-Muscle Tone Assessment Muscle Tone WNL Yes OT Sensation Assessment Edema Edema Absent M9 OT- IP Assessment and Plan Start: 11/15/18 15:44 Freq: Status: Active Protocol: Document 11/16/18 14:22 CGR (Rec: 11/16/18 14:31 CGR [email or web address]) OT Summary Assessment and Plan Potential Rehabilitation Potential Good Analytic Complexity at Evaluation Low Summary OT Impairments Pain,Balance,Functional Mobility,Dressing,Toileting, Bathing,Toilet Transfers, Shower Transfers Progress Towards Goals Safe For Discharge Assessment Summary Pt presents as a low complexity evaluation s/p YULIA. Pt is able to state his hip precautions and perform mobility and self care with SBA. He is planned for d/c home today. No further OT needs. plans to stay with him. Discussed home safety and set up. Frequency of Treatment Frequency Of Treatment Discharge Discharge Recommendations OT Discharge Recommendations Home with Assistance
== END 2018-11-16 13:50 | disposition home or self-care (01) | DRG 470 ==
PROVIDERS: Admitting Provider Orthopaedic Surgery; Visit Provider Orthopaedic Surgery
PROC: 0SRB0JZ Replacement of Left Hip Joint with Synthetic Substitute, Open Approach (ICD-10-PCS; CPT 27130; principal; 2018-11-14 12:00)
DX: M16.12 Unilateral primary osteoarthritis, left hip (principal); Z68.41 Body mass index [BMI] 40.0-44.9, adult; M87.852 Other osteonecrosis, left femur; E66.9 Obesity, unspecified; G47.33 Obstructive sleep apnea (adult) (pediatric); F32.9 Major depressive disorder, single episode, unspecified; Z87.891 Personal history of nicotine dependence
CPT/HCPCS: 36415; 72170; 73502; 85014; 85018; 97110; 97116; 97161; 97165; 97530; 97535; C1776; C9290; J0171; J0690; J1100; J1170; J2250; J2274; J2405; J2704; J3010

== ENCOUNTER → 2020-06-17 10:31 | Outpatient (CLI) | payer OTHER, SELFPAY ==
[2018-11-14 17:40] VITALS: BMI 43.9
[2020-06-17 10:47] LABS: Bacteria Urine None Seen; RBC Urine None Seen (0-5/HPF); WBC Urine None Seen (0-5/HPF)
[2020-06-17 11:05] LABS: Appearance Urine UA CLEAR; Bilirubin Urine UA NEGATIVE (NEGATIVE); Color Urine UA YELLOW; Glucose Urine UA NEGATIVE (Negative); Ketones Urine UA NEGATIVE (NEGATIVE); Leukocyte Esterase Urine UA NEGATIVE (NEGATIVE); Nitrite Urine UA NEGATIVE (Negative); Occult Blood Urine UA NEGATIVE (Negative); Protein Urine UA NEGATIVE (Negative); Specific Gravity Urine UA 1.015 (1.000-1.035); Urobilinogen Urine UA 0.2 E.U./dL (0.2)
[2020-06-17 11:15] LABS: Add Manual Diff / Slide Review NO; Basophils Absolute Auto 0 /uL (0-100); Basophils Percent Auto 0.4 % (0-2); Eosinophils Absolute Auto 100 /uL (0-450); Eosinophils Percent Auto 2.3 % (2-4); Hematocrit 45.1 % (41-53); Hemoglobin 15.1 g/dL (13.5-17.5); Lymphocytes Absolute Auto 1800 /uL (1100-4500); Lymphocytes Percent Auto 31.1 % (25-40); Mean Corpuscular HGB Conc 33.4 % (30-36); Mean Corpuscular Hemoglobin 30.1 PG (26-34); Mean Corpuscular Volume 89.9 fL (80-100); Monocytes Absolute Auto 500 /uL (0-900); Monocytes Percent Auto 8.4 % (3-14); Neutrophils Absolute Auto 3300 /uL (1500-7000); Neutrophils Percent Auto 57.8 % (50-75); Platelet Count 181 X10^3/uL (150-400); Red Blood Cell Count 5.02 X10^6/uL (4.5-5.9); Red Cell Distribution Width 13.9 % (11.6-14.8); White Blood Cell Count 5.7 X10^3/uL (4.5-11.0)
[2020-06-17 11:24] LABS: Hemoglobin A1C% w Est Avg Glu 5.3 % (4.0-6.0)
[2020-06-17 11:30] LABS: Urine Comments Microscopic Normal
[2020-06-17 11:35] LABS: Alanine Aminotransferase 22 IU/L (<50); Albumin 4.4 g/dL (3.5-5.0); Albumin Globulin Ratio 1.4 (1.0-2.8); Alkaline Phosphatase 90 U/L (38-126); Aspartate Aminotransferase 32 IU/L (17-59); BUN Creatinine Ratio 30.6 (6-22); Bilirubin Total 2.4 mg/dL (0.2-1.3); Blood Urea Nitrogen 19 mg/dL (9-20); Calcium 9.5 mg/dL (8.4-10.2); Carbon Dioxide 29 mmol/L (22-32); Chloride 102 mmol/L (98-107); Estimated Glomerular Filt Rate > 60.0 mL/min (>60); Globulin 3.1 g/dL (1.7-4.1); Glucose 106 mg/dL (80-110); Potassium 4.3 mmol/L (3.4-5.1); Sodium 139 mmol/L (137-145); Total Protein 7.5 g/dL (6.3-8.2)
[2020-06-17 11:38] LABS: HEMOLYSIS 92 (0-50)
== END ==
PROVIDERS: Referring Provider Orthopaedic Surgery; Visit Provider Orthopaedic Surgery
DX: Z01.818 Encounter for other preprocedural examination (principal); Z01.812 Encounter for preprocedural laboratory examination; R73.9 Hyperglycemia, unspecified; N39.0 Urinary tract infection, site not specified
CPT/HCPCS: 36415; 80053; 81001; 83036; 85025; 93005

== ENCOUNTER 2020-06-22 08:09 | Day surgery (SDC) | payer OTHER, SELFPAY ==
[2018-11-14 17:40] VITALS: BMI 43.9
[2020-06-18 13:08] VITALS: BMI 43.4
[2020-06-22] VITALS (15 sets, daily range): BP systolic 104–143; BP diastolic 52–77; PULSE 63–95; RESP 12–20; TEMP 36.6–37.6; O2SAT 91–99; BMI 43.2
--- NOTE | 2020-06-22 06:30 | DI.RAD.S_ITS ---
PROCEDURE: XR HIP W PEL IF DONE RT 2V INDICATIONS: hip replacement right TECHNIQUE: AP pelvis with lateral view(s) of the right hip(s). COMPARISON: [facility], BIB, XR HIP W PEL IF DONE LT 2V, 11/14/2018, 15:08. FINDINGS: Expected postoperative alignment of right hip arthroplasty. Hardware appears intact. No acute fracture IMPRESSION: Expected postoperative alignment. Dictated by: Saul Maravilla M.D. on 06/22/2020 at 17:57 Approved by: Saul Maravilla M.D. on 06/22/2020 at 17:58
[2020-06-22 08:44] LABS: COVID19 -Nasal RAPID Negative (Negative)
[2020-06-22] MEDS: ACETAMINOPHEN 325 MG TABLET 975 MG PO (09:17)
[2020-06-22] MEDS: CELECOXIB 200 MG CAPSULE PO (09:18)
[2020-06-22] MEDS: LACTATED RINGERS 1,000 ML 42 ML IV ×2 (09:37→13:06)
[2020-06-22] MEDS: VANCOMYCIN 1,000 MG/200 ML PIGGYBACK 200 MG IV (10:20)
--- NOTE | 2020-06-22 10:32 | PM.PREOP ---
Pre-operative Note COVID-19 COVID-19 status: Negative Interval Note History & Physical reviewed/Exam performed by Physician: Yes Changes to H&P: No H&P completed within 30 days and has changed as indicated here:: none
--- NOTE | 2020-06-22 10:33 | PM.HP.1 ---
History of Present Illness History of Present Illness Date Patient Seen: 06/22/20 Time Patient Seen: 10:33 Chief complaint: Right Total Hip Arthroplasty *OPB* Narrative: Joel continues to note incapacitating right hip pain. It is very painful every step it is crunching and severely restricts his overall lifestyle and activities. Patient History Medical History Arthritis BPH (benign prostatic hyperplasia) Depression Enlarged prostate Hearing impaired Hematuria HLD (hyperlipidemia) HTN (hypertension) Impaired fasting glucose Kidney stone (~09/2018) Lower back injury Nasal fracture RODOLFO on CPAP Osteoarthritis RBBB (right bundle branch block) Surgical History H/O vasectomy History of carpal tunnel release of both wrists History of total left hip arthroplasty (11/14/18) Hx of arthroscopy of left knee Hx of hernia repair Hx of tonsillectomy Family & Social History Social History: household members spouse Prior Living Arrangements RV Safety & Behavioral: Feels Safe in Current Yes Environment Been Physically Hurt or No Threatened By a Person Suicidal Ideation Description None Suicide Plan Description No Plan Tobacco & Substance use: Tobacco type cigarettes Smoking Status Former smoker alcohol intake current alcohol intake frequency holiday/special occasion Substance Use Type does not use Meds Home Medications and Allergies Home Medications Medication Instructions Recorded Confirmed Type acetaminophen [Acetaminophen Pain 1,000 mg PO DAILY PRN 11/04/18 06/22/20 History Relief] atorvastatin 10 mg PO BEDTIME 11/04/18 06/22/20 History citalopram 20 mg PO DAILY 11/04/18 06/22/20 History doxazosin 1 mg PO DAILY 11/04/18 06/22/20 History furosemide 20 mg PO QAM 11/04/18 06/22/20 History meloxicam 15 mg PO DAILY 11/04/18 06/22/20 History docusate sodium [DOK] 100 mg PO BID PRN 06/22/20 06/18/20 History trazodone 100 mg PO BEDTIME PRN 06/22/20 06/22/20 History Allergies Allergy/AdvReac Type Severity Reaction Status Date / Time Penicillins Allergy Intermediate Rash Verified 06/22/20 09:12 Review of Systems Review of Systems Narrative: Doing well. Had recent urological surgery for a kidney stone. Does not have significant prostate problems. Denies fevers chills. Has continued on intentional weight loss. Exam Vital Signs (past 8 hours): - 06/22/20 09:28 Temperature 98.4 F Pulse Rate 65 Respiratory Rate 14 Blood Pressure 141/76 H Pulse Oximetry 99 Oxygen Delivery Method Room Air Narrative Exam Narrative: HEENT is benign lungs are clear cor regular rate and rhythm abdomen soft and benign. 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 Procedure alternatives risks benefits and complications were discussed in detail. We discussed in great detail that he is obese and felt to be at increased risk for dislocation because of his severe obesity. He has incapacitating hip pain and is anxious to proceed with total hip arthroplasty. We also discussed risks for infection DVT major medical problems including but not limited heart attack stroke and major wound healing issues. He basically feels that he can not live with his hip the way it is and does want to proceed with surgery.
[2020-06-22] MEDS: CEFAZOLIN 2 GM/100 ML FROZ.PIGGY IV (11:14)
[2020-06-22] MEDS: TRANEXAMIC ACID 1,000 MG VIAL 1000 MG INJ ×2 (11:19→13:05)
[2020-06-22] MEDS: CEFAZOLIN 1 GM/50 ML FROZ.PIGGY IV (11:26)
--- NOTE | 2020-06-22 11:30 | DI.RAD.S_ITS ---
PROCEDURE: XR PELVIS 1-2V INDICATIONS: INNER OP TECHNIQUE: Intra-operative view of the pelvis and hip acquired. COMPARISON: [facility], , XR PELVIS 1-2V, 11/14/2018, 13:40. FINDINGS: Bones: Intraoperative devices prior to placement of arthroplasty prostheses are in expected positions. No fractures or suspicious bony lesions. Soft tissues: Overlying surgical retractors are present, along with other intraoperative changes. IMPRESSION: Expected intraoperative appearance Dictated by: Saul Maravilla M.D. on 06/22/2020 at 17:53 Approved by: Saul Maravilla M.D. on 06/22/2020 at 17:53
--- NOTE | 2020-06-22 11:47 | SUR.OPER ---
Lateral on padded OR bed, head on pillow, gel axillary roll in place, bottom leg bent with gel pad under knee to foot, upper leg straight and supported with pillows. Upper arm supported by pillows and secured over bottom arm to padded arm board. Safety belt at hip, tape over blanket lower legs.
[2020-06-22] MEDS: BUPIVACAINE 0.25% W/ EPI 30 ML VIAL 60 ML INJ (11:53)
[2020-06-22] MEDS: BUPIVACAINE LIPOSOME 266 MG/20 ML VIAL INJ (11:54)
[2020-06-22] MEDS: SODIUM CHLORIDE IRRIG SOLUTION 250 ML, POVIDONE-IODINE SPONGE STICKS 1 APPLIC IRR (11:59)
[2020-06-22] MEDS: hydrOXYzine pamoate 25 MG CAPSULE PO (14:12)
[2020-06-22] MEDS: HYDROMORPHONE 2 MG INJ IV (14:12)
--- NOTE | 2020-06-22 14:38 | P.OP_ITS ---
Operative Date/Time/Diagnoses Date of procedure: 06/22/20 Time of procedure: 10:57 Pre-op diagnosis: Right hip osteoarthritis Post-op diagnosis: same Procedure & Clinicians Procedure: Right total hip arthroplasty posterior approach Same procedure as scheduled: Yes Indications: The patient has had progressively worsening right hip pain with r adiographic changes consistent with arthritis. Non-operative management has failed and the patient has requested total hip replacement. The risks, benefits and alternatives to surgery were discussed with the patient prior to proceeding. Risks discussed included, but were not limited to, failure to relieve pain, leg length discrepancy, dislocation, stiffness, infection, nerve damage, deep venous thrombosis, pulmonary embolism, stroke, coma, heart attack, permanent paralysis and , as well as the potential need for eventual revision of the prosthetic. Surgeon: Letitia Hooker [employer] Consultant: Danny Randolph Anesthesia Type: General and Spinal Operative Notes Findings: Severe right hip osteoarthritis, soft bone adequate stability Closure Type: primary Specimen(s): none sent Prosthetic devices, grafts, tissues, transplants, or devices: [employer] 56 mm R3 cup, neutral 36 mm poly liner, size 10 standard offset anthology, 1 screw, +0 cobalt chrome head Applied: drain(s) Estimated Blood Loss (mL): 250 Blood products transfused: none Procedure in detail: The patient was seen in the pre-operative area, where the patient identified the right hip as the operative site and this was marked with my initials. The patient received pre-operative antibiotics and was taken to the operating room and placed on the operative table in the left lateral decubitus position after satisfactory anesthesia. A impregnating helper out was performed. The r ight leg was prepared from the ankle to the iliac crest with ChloroPrep in the usual fashion and draped through sterile drapes. The hip was approached through an approximately 24 cm incision centered over the greater trochanter and curving gently posteriorly as it went proximally. This was carried sharply to the fascia piotr, which was divided and retracted with a self retaining retractor. The trochanteric bursa was excised with care being taken to avoid the sciatic nerve, which was identified and protected throughout the case. The short external rotators were incised and the capsulomuscular flap was raised and tagged for later repair. The hip was dislocated, and a femoral neck osteotomy performed approximately 15 mm above the lesser trochanter. Retractors were placed around the femur. The canal was opened with a box cutting osteotome, followed by a T handled reamer and a lateralizing reamer. The chili pepper broach was then used, followed by sequential broaching until there was good stability of the broach in the femur. Retractors were placed to expose the acetabulum. The labrum and central soft tissues were removed. Reaming was performed initially going up in 2 mm incremen ts, then 1 mm increments until good bite was obtained with an odd sized reamer. The cup 1 mm larger than the last reamer was then inserted using the appropriate anteversion guides. A trial neutral liner was placed. The broach was placed in the canal. A trial head and neck were then placed and the hip relocated and checked for leg length and stability. An intraoperative film confirmed the component position and no evidence of fracture. The patient was stable in the position of sleep, of squatting, and could be put through a range of motion with 45 degrees internal rotation without dislocation. At 90 degrees flexion, internal rotation to 70 ? was possible before dislocation. This was felt to be satisfactory and the appropriate components were opened, and the trials were removed. The cup position was meticulously checked and it was further stabilized with a single screw. The acetabular liner was impacted into position. The final stem was then impacted into the prepared femoral canal. A brief Betadine soak was performed while trialing with head options. The hip was meticulously irrigated with normal saline. Finally the femoral head was impacted onto the stem. The acetabulum was cleared of all material and the hip relocated one final time. The capsulomuscular flap was then repaired to the greater trochanter though an awl hole using the tag sutures. The short external rotators were repaired with a nonabsorbable suture. A deep drain was placed and brought out anteriorly. The fascia piotr was closed with Vicryl. The subcutaneous layer was closed with barbed sutures and SteriStrips. An Aquacel Ag dressing was applied and the patient was taken to recovery having tolerated the procedure well. Complications: none Post-operative Condition: stable Disposition: Acute Care Plan for aftercare: The patient will be maintained on a standard total hip replacement protocol with weight bearing as tolerated and posterior hip precautions. The patient will receive Aspirin and sequential compression devices for DVT prophylaxis. The patient will be discharged home when safe for the home environment.
[2020-06-22] MEDS: LACTATED RINGERS 1,000 ML 125 ML IV (16:16)
[2020-06-22] MEDS: ACETAMINOPHEN 325 MG TABLET 650 MG PO ×2 (16:16→21:22)
[2020-06-22] MEDS: OXYCODONE IR 5 MG TABLET PO ×2 (16:16→21:22)
[2020-06-22] MEDS: IBUPROFEN 400 MG TABLET PO ×2 (17:16→21:23)
[2020-06-22] MEDS: DOCUSATE 100 MG CAPSULE PO (21:22)
[2020-06-22] MEDS: ASPIRIN EC 81 MG TABLET PO (21:23)
[2020-06-22] MEDS: ATORVASTATIN 20 MG TABLET 10 MG PO (21:23)
[2020-06-22] MEDS: CEFAZOLIN VIAL 3 GM in SODIUM CHLORIDE 0.9% 100 ML 200 ML IV (22:38)
--- NOTE | 2020-06-22 23:40 | PC.ADMIT ---
[id number] Admission Note: Pt arrived from PACU, A/Ox4, bedside report given, pt connected to monitoring equipment, VSS, oriented to room and call light system, c/o pain 6/10 in back, medicated as ordered, fluids infusing as ordered, bed low and locked, call light within reach, will continue to monitor. The patient,Jayden Conway,74 y/o, was given written information regarding hospital policies, unit procedures and contact persons. Patient's smoking status: Former smoker. Vital Signs - 8 hr 06/22/20 15:50 06/22/20 16:25 06/22/20 17:25 Temperature 98.8 F 97.9 F 99.7 F H Pulse Rate 72 74 88 Respiratory Rate 20 18 20 Blood Pressure 120/58 L 122/70 114/52 L Pulse Oximetry 92 91 95 06/22/20 18:25 Temperature Pulse Rate 84 Respiratory Rate 18 Blood Pressure 112/58 L Pulse Oximetry 95
[2020-06-23] MEDS: IBUPROFEN 400 MG TABLET PO ×3 (00:45→14:36)
[2020-06-23] MEDS: LACTATED RINGERS 1,000 ML 125 ML IV (00:45)
--- NOTE | 2020-06-23 01:07 | PC.NURSE ---
@1013 encouraged pt to have BM on BSC, pt unable to have BM, brief was soiled with urine only. Pt at time denied having urge to have BM. Encouraged pt to continue drinking GoLitely, cup filled at beginning of noc shift.
[2020-06-23 03:40] VITALS: BP 115/61; PULSE 61; RESP 16; TEMP 36.7; O2SAT 97
[2020-06-23] MEDS: CEFAZOLIN VIAL 3 GM in SODIUM CHLORIDE 0.9% 100 ML 200 ML IV (05:54)
--- NOTE | 2020-06-23 07:43 | PM.PNPO.1 ---
Subjective Subjective Date Patient Seen: 06/23/20 Time Patient Seen: 07:43 Interval history: Patient's pain is [id number]. Denies fever or chills. No nausea or vomiting. Exam Vital Signs (past 8 hours): - 06/23/20 03:40 Temperature 98.1 F Pulse Rate 61 Respiratory Rate 16 Blood Pressure 115/61 Pulse Oximetry 97 Oxygen Delivery Method Room Air Oxygen Flow Rate 0 Narrative Exam Narrative: 74-year-old male resting comfortably in bed in no apparent distress. Motor functions intact bilateral lower extremities. Both legs are warm and dry. Sensation grossly intact to light touch. Right hip dressing is Clean, dry, intact.. Objective Labs Labs: Laboratory Results - last 24 hr 06/22/20 08:20 SARS-CoV-2 (PCR) Negative PFSH Medical History Arthritis BPH (benign prostatic hyperplasia) Depression Enlarged prostate Hearing impaired Hematuria HLD (hyperlipidemia) HTN (hypertension) Impaired fasting glucose Kidney stone (~09/2018) Lower back injury Nasal fracture RODOLFO on CPAP Osteoarthritis RBBB (right bundle branch block) Surgical History H/O vasectomy History of carpal tunnel release of both wrists History of total left hip arthroplasty (11/14/18) Hx of arthroscopy of left knee Hx of hernia repair Hx of tonsillectomy Social History household members: spouse Smoking Status: Former smoker alcohol intake: current Assessment & Plan Post-op Postoperative Procedures: Procedures Operation Date: 06/22/20 10:45 Actual Procedures Side Surgeon p Total Hip Arthroplasty Right Letitia Hooker MD postop day 1 status post right total hip arthroplasty. Mobilize with physical therapy this morning. Likely discharge home this afternoon.
[2020-06-23 08:47] VITALS: BP 95/60; PULSE 65; RESP 16; TEMP 36.8; O2SAT 97
--- NOTE | 2020-06-23 09:15 | PT.IIE ---
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) Surgery Performed Operation Date: 06/22/20 10:45 Actual Procedures p Total Hip Arthroplasty(Right) - Letitia Hooker MD Surgical History (Last Reviewed 06/22/20 @ 14:18 by Letitia Hooker MD) H/O vasectomy History of carpal tunnel release of both wrists History of total left hip arthroplasty (11/14/18) Hx of arthroscopy of left knee Hx of hernia repair Hx of tonsillectomy Medical History (Last Reviewed 06/22/20 @ 14:18 by Letitia Hooker MD) Arthritis BPH (benign prostatic hyperplasia) Depression Enlarged prostate Hearing impaired Hematuria HLD (hyperlipidemia) HTN (hypertension) Impaired fasting glucose Kidney stone (~09/2018) Lower back injury Nasal fracture RODOLFO on CPAP Osteoarthritis RBBB (right bundle branch block) Physical Therapy Inpatient Evaluation/Re-Eval M1 PT/OT-IP Prior Functional Status Start: 06/23/20 12:35 Freq: NEEDED Status: Active Protocol: Document 06/23/20 09:15 AB (Rec: 06/23/20 12:48 AB [email or web address]) Medical Review Prior Functional Status Medical History Reviewed Yes Communication able to make needs known Mobility and Gait pt stated that he is modified independent with all mobilities and ambulation using SPC Social History Household Members spouse Living Arrangements RV Number of Floors (Floors) One Floor Number of Stairs To Enter/Railing? has a ramp to enter Home Environment Standard Height Toilet,Walk in Shower,Built-In Shower Seat Home Equipment Four Wheel Walker,Raised Toilet Seat Without Armrests, Hand Held Shower,Lift Recliner ,Grab Bars In Shower Additional Social History Comment pt has a standard walker pt sleeps on his lift chair pt lives in her daughter's property and stated that her daughter will be able to assist as well if needed M2 PT-IP Current Condition Start: 06/23/20 12:35 Freq: NEEDED Status: Active Protocol: Document 06/23/20 09:15 AB (Rec: 06/23/20 12:48 AB [email or web address]) Physical Therapy Current Condition Current Condition Evaluation Date 06/23/20 Treatment Diagnosis s/p RTHA posterior approach; difficulty in walking Onset Date 06/22/20 Precautions Posterior Hip Precautions No Hip Flexion > 90 degrees,No Hip Internal Rotation,No Hip Adduction Weight Bearing Status Weight Bearing Status Weight Bear as Tolerated Allowed Weight Bearing Amount (enter % RLE WBAT or #) (%) M3 PT-IP Subjective Start: 06/23/20 12:35 Freq: NEEDED Status: Active Protocol: Document 06/23/20 09:15 AB (Rec: 06/23/20 12:48 [email or web address]) Subjective Physical Therapy Visit Type Type Initial Evaluation Visit Start Time 09:15 Visit Stop Time 10:10 Total Visit Minutes 55 Number of SUPERVISOR LEAD BURNING Visits 0 Physical Therapy Visit Comments Patient Comments pt is agreeable to do PT Therapy Pain Assessment Pain When Pain Assessed At Rest Pain Present Pain Present Pain Reported Location Right Hip Intensity 5 Scale Used Numeric (0 - 10) Pain Management Techniques Apply Cold,Distraction, Modification of Treatment,Re- positioning,Timing of Activity with Medications M4 PT-IP Mobility and Gait Start: 06/23/20 12:35 Freq: NEEDED Status: Active Protocol: Document 06/23/20 09:15 AB (Rec: 06/23/20 12:48 [email or web address]) PT-Bed Mobility Assessment Supine to Sit Supine to Sit Maximum Assistance PT-Transfer Assessment Sit to and From Stand Sit to and from Stand Minimal Assistance,1 Person Assistance,Use of Upper Extremities Equipment Transfer Assistive Device Standard Walker Orthotic/Prosthetic Devices or Brace: No Transfers Transfer Destination Chair Transfer Technique ambulated using standard walker Transfer Ability Level of Assist Minimal Assistance Comments Mobility Comments educated pt on hip precautions and requires cues to recall. required max A for supine to sit but pt stated that he will sleep on his lift chair. pt completed sit to stand from the EOB min A and ambulated to the chair min A and cues for hip precautions and R quads activation. pt requested to sit on chair and unable to ambulate further. positioned on chair. call light and table placed within reach. set up caregiver training with pt and spouse at 2 pm this afternoon Gait Assessment Gait Gait Assistance Required: Minimum Assistance Distance (Feet) 20 Able to Maintain Weight Bearing Status Yes During Gait Assistive Devices Assistive Device Gait Belt,Front Wheeled Walker Orthotic/Prosthetic Devices or Brace: No Gait Deviations General Gait Pattern Decreased Stride Length, Decreased Feet Clearance, Flexed Trunk,Step-to Gait Factors Limiting Gait Function Factors Limiting Gait Function Decreased Activity Tolerance, Decreased Strength,Pain,Poor Balance,Poor Safety Awareness PT-Balance Assessment Sitting Balance and Reactions Static Sitting Balance Ability Good Dynamic Sitting Balance Ability Good Standing Balance and Reactions Static Standing Balance Ability Fair Dynamic Standing Balance Ability Fair Device Used std walker M5 PT-IP Objective Assessments Start: 06/23/20 12:35 Freq: NEEDED Status: Active Protocol: Document 06/23/20 09:15 AB (Rec: 06/23/20 12:48 AB [id number]) Orientation Orientation/Cognition Level of Alertness Alert Orientation Name,Place,Situation Language Function Ability No Deficits Noted Safety Awareness Decreased Safety Awareness Memory Description Short Term Impaired Strength Lower Extremity Strength Assessment Right Impaired Hip 3+/5 Knee 3+/5 Coordination Assessment Gross Coordination Gross Coordination WNL Sensation Assessment Sensation Gross Sensation WNL Muscle Tone Muscle Tone WNL Yes M6 PT-IP Treatment Start: 06/23/20 12:35 Freq: NEEDED Status: Active Protocol: Document 06/23/20 09:15 AB (Rec: 06/23/20 12:48 AB [email or web address]) Physical Therapy Treatment Education Education Provided Precautions,Weight Bearing Status,Post-Op Packet,Safety M7 PT-IP Assessment and Plan Start: 06/23/20 12:35 Freq: NEEDED Status: Active Protocol: Document 06/23/20 09:15 AB (Rec: 06/23/20 12:48 AB [email or web address]) PT Summary Assessment and Plan Potential Rehabilitation Potential Good Status of Condition at Evaluation Evolving Summary Impairments Pain,ROM,Strength,Balance, Coordination,Sensation,Tone, Cognition,Bed Mobility, Transfers,Gait,Activity Tolerance Assessment Summary pt requiring min A with transfers and ambulation using standard walker but pt unable to tolerate much activity. will continue to assess progress. caregiver training set up for 2 pm with pt and pt 's spouse. Goals Bed Mobility Goal Minimal Assistance Transfer Goal Standby Assistance,Front Wheeled Walker Gait Goal Standby Assistance,Front Wheel Walker Gait Distance 100 Days to Meet Goals 5 Frequency of Treatment Frequency Of Treatment Twice a Day Treatment Plan Physical Therapy Treatment Plan Bed Mobility Training,Transfer Training,Gait Training, Therapeutic Exercise,Balance Retraining,Post Op Education, Discharge Planning,Hot or Cold Pack,Neuromuscular Re-ed, Coordination Retraining,Manual Therapy Precautions Posterior Hip Precautions No Hip Flexion > 90 degrees,No Hip Internal Rotation,No Hip Adduction Other Precautions RLE WBAT Recommendations To Nursing Amount of Assist Needed 1 Person Assist Discharge Recommendations PT Discharge Recommendations Home with 04/09 Assist Available,Home Health, Outpatient PT Transportation Needs at Discharge Private Vehicle
[2020-06-23 09:37] LABS: Hematocrit 36.6 % (41-53); Hemoglobin 12.4 g/dL (13.5-17.5)
[2020-06-23] MEDS: CITALOPRAM 10 MG TABLET 20 MG PO (10:16)
[2020-06-23] MEDS: MELOXICAM 7.5 MG TABLET 15 MG PO (10:16)
[2020-06-23] MEDS: OXYCODONE IR 5 MG TABLET PO ×2 (10:17→14:37)
[2020-06-23] MEDS: ACETAMINOPHEN 325 MG TABLET 650 MG PO ×2 (10:17→14:37)
[2020-06-23] MEDS: DOXAZOSIN 2 MG TABLET 1 MG PO (10:18)
[2020-06-23] MEDS: DOCUSATE 100 MG CAPSULE PO (10:18)
[2020-06-23] MEDS: ASPIRIN EC 81 MG TABLET PO (10:18)
[2020-06-23] MEDS: FUROSEMIDE 20 MG TABLET PO (10:18)
--- NOTE | 2020-06-23 10:26 | PM.DS.1 ---
History of Present Illness History of Present Illness Date Patient Seen: 06/23/20 Time Patient Seen: 10:26 Chief complaint: Right Total Hip Arthroplasty *OPB* Narrative: Patient progressing as expected. Discharge home today in stable condition. Discharge Providers Provider Discharge Date: 06/23/20 Primary care physician: Viki Reddy MD Consults: 06/22/20 06:30 Consult to Anesthesiology Routine Comment: Consulting Provider: Anesthesiologist Reason for consultation: Regional block for post operative pain control 06/22/20 09:36 Consult to Respiratory Therapy Evaluate & Treat Comment: Physician Instructions: Evaluate and treat 06/22/20 12:09 Consult to Physician Routine Comment: consult to primary care provider for followup Consulting Provider: Letitia Hooker Reason for consultation: Positive STOP BANG, management of obstructive sleep apnea Has provider been notified: Yes 06/22/20 15:47 Consult to Discharge Planning Routine Comment: Consult to Physical Therapy Evaluate & Treat Comment: Physician Instructions: post op YULIA protocol Consult to Respiratory Therapy Evaluate & Treat Comment: Physician Instructions: Evaluate and treat Discharge provider: Danny Randolph PA-C Summary Hospital Course Discharge Diagnosis: Severe right hip DJD Hospital Course: Procedure: Right total hip arthroplasty posterior approach Same procedure as scheduled: Yes Indications: The patient has had progressively worsening right hip pain with radiographic changes consistent with arthritis. Non-operative management has failed and the patient has requested total hip replacement. The risks, benefits and alternatives to surgery were discussed with the patient prior to proceeding. Risks discussed included, but were not limited to, failure to relieve pain, leg length discrepancy, dislocation, stiffness, infection, nerve damage, deep venous thrombosis, pulmonary embolism, stroke, coma, heart attack, permanent paralysis and , as well as the potential need for eventual revision of the prosthetic. Surgeon: Letitia Hooker Firewood Cutter: Danny Randolph Anesthesia Type: General and Spinal Operative Notes Findings: Severe right hip osteoarthritis, soft bone adequate stability Closure Type: primary Specimen(s): none sent Prosthetic devices, grafts, tissues, transplants, or devices: [employer]er [employer]hew 56 mm R3 cup, neutral 36 mm poly liner, size 10 standard offset anthology, 1 screw, +0 cobalt chrome head Applied: drain(s) Estimated Blood Loss (mL): 250 Blood products transfused: none Patient admitted to the hospital for right total hip arthroplasty, posterior approach. Patient consented to the same. Patient taken the operating room underwent right total hip arthroplasty. Patient back in his room recovering well as in stable condition. Discharge home today in stable condition. Status at Discharge Cognitive/behavioral status at discharge: at baseline, oriented Functional status at discharge: uses cane/walker Overall status at discharge: patient is progressing back to baseline Time Spent with Patient Time spent: Less than 30 minutes Exam Vital Signs (past 8 hours): - 06/23/20 03:40 06/23/20 08:47 Temperature 98.1 F 98.3 F Pulse Rate 61 65 Respiratory Rate 16 16 Blood Pressure 115/61 95/60 Pulse Oximetry 97 97 Oxygen Delivery Method Room Air Oxygen Flow Rate 0 Narrative Exam Narrative: See progress note Objective Labs Result Diagrams: 06/23/20 09:17 Labs: Laboratory Results - last 24 hr 06/23/20 09:17 Hgb 12.4 L Hct 36.6 L PFSH Medical History Arthritis BPH (benign prostatic hyperplasia) Depression Enlarged prostate Hearing impaired Hematuria HLD (hyperlipidemia) HTN (hypertension) Impaired fasting glucose Kidney stone (~09/2018) Lower back injury Nasal fracture RODOLFO on CPAP Osteoarthritis RBBB (right bundle branch block) Surgical History H/O vasectomy History of carpal tunnel release of both wrists History of total left hip arthroplasty (11/14/18) Hx of arthroscopy of left knee Hx of hernia repair Hx of tonsillectomy Social History household members: spouse Smoking Status: Former smoker alcohol intake: current Discharge Assessment & Plan Assessment and Plan Assessment: Patient progressing as expected status post right total hip arthroplasty, posterior approach Plan of Treatment: Discharge home today in stable condition. Weightbearing as tolerated. Posterior hip precautions. Aspirin b.i.d.. Discharge Plan Discharge Plan Patient Disposition: Home Provider Discharge Comment: DC home in stable condition Nursing Discharge Comment: Small dressing site where hemovac removed from needs to be removed at 48 hours. Large dressing to right hip - PIERCE dressing - stays in place until you see the doctor. Check to be sure green light is flashing. Follow instructions given to you for PIERCE dressing. You have a PIERCE dressing which is given to you at discharge. If you have problems with the drain call the office. Bring the dressing with you to the office. Discharge orders & Medications Discharge Orders: Discharge (Order); Ordered 06/23/20 Ordered By: Letitia Hooker Prescriptions: New acetaminophen 325 mg Tablet 650 mg PO TID Qty: 60 RF: 0 aspirin 81 mg Tablet,Delayed Release (Dr/Ec) 81 mg PO BID Qty: 60 RF: 0 oxycodone 5 mg Tablet 5 mg PO Q3HR PRN (Reason: Pain, Moderate (4-6)) Qty: 45 RF: 0 Continued atorvastatin 10 mg Tablet 10 mg PO BEDTIME RF: 0 doxazosin 1 mg Tablet 1 mg PO DAILY RF: 0 meloxicam 15 mg Tablet 15 mg PO DAILY RF: 0 citalopram 20 mg Tablet 20 mg PO DAILY RF: 0 furosemide 20 mg Tablet 20 mg PO QAM RF: 0 trazodone 100 mg Tablet 100 mg PO BEDTIME PRN (Reason: Sleep) RF: 0 docusate sodium [DOK] 100 mg capsule 100 mg PO BID PRN (Reason: Constipation) RF: 0 Discontinued acetaminophen [Acetaminophen Pain Relief] 500 mg Tablet 1,000 mg PO DAILY PRN (Reason: Pain) RF: 0 Follow up/Referrals: Viki Reddy MD [Primary Care Provider] - Letitia Hooker MD [Physician] - (Two weeks) Diet/Activity/Treatments Diet: Diet as Tolerated Activity: Weight-bearing as tolerated, anterior hip precautions Cold/Heat Therapy: Apply ice to hip as needed Skin/Wound/Dressing Care Report to your healthcare provider any signs of infection, such as:: chills, fever, increased pain, unusual drainage and unusual redness Dressing: PIERCE dressing instructions given. Visit Report/Discharge Packet Instructions: DI for Hip Replacement, DI for Constipation, How to Prevent Falls Stand Alone Forms: Surgery Discharge Discharge Data Primary Care Provider: Viki Reddy Attending Provider: Letitia Hooker
[2020-06-23 11:49] VITALS: BP 116/62; PULSE 70; RESP 18; TEMP 36.9; O2SAT 98
--- NOTE | 2020-06-23 14:00 | PT.IPTN ---
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) Surgery Performed Operation Date: 06/22/20 10:45 Actual Procedures p Total Hip Arthroplasty(Right) - Letitia Hooker MD Physical Therapy Treatment Note M2 PT-IP Current Condition Start: 06/23/20 12:35 Freq: NEEDED Status: Active Protocol: Document 06/23/20 09:15 AB (Rec: 06/23/20 12:48 AB [id number]) Physical Therapy Current Condition Current Condition Evaluation Date 06/23/20 Treatment Diagnosis s/p RTHA posterior approach; difficulty in walking Onset Date 06/22/20 Precautions Posterior Hip Precautions No Hip Flexion > 90 degrees,No Hip Internal Rotation,No Hip Adduction Weight Bearing Status Weight Bearing Status Weight Bear as Tolerated Allowed Weight Bearing Amount (enter % RLE WBAT or #) (%) M3 PT-IP Subjective Start: 06/23/20 12:35 Freq: NEEDED Status: Active Protocol: Document 06/23/20 14:00 AB (Rec: 06/23/20 15:11 AB [id number]) Subjective Physical Therapy Visit Type Type Treatment Note Visit Start Time 14:00 Visit Stop Time 14:30 Total Visit Minutes 30 Number of VICE PRESIDENT Visits 0 Physical Therapy Visit Comments Patient Comments agreeable to do PT Therapy Pain Assessment Pain When Pain Assessed At Rest Pain Present Pain Present Pain Reported Location Right Hip Scale Used pain scale not stated Pain Management Techniques Modification of Treatment,Re- positioning,Timing of Activity with Medications M4 PT-IP Mobility and Gait Start: 06/23/20 12:35 Freq: NEEDED Status: Active Protocol: Document 06/23/20 14:00 AB (Rec: 06/23/20 15:11 AB [id number]) PT-Transfer Assessment Sit to and From Stand Sit to and from Stand Contact Guard Assistance, Minimal Assistance,1 Person Assistance Equipment Transfer Assistive Device Gait Belt,Front Wheeled Walker Orthotic/Prosthetic Devices or Brace: No Comments Mobility Comments pt sitting on chair. spouse not in room yet for training. pt completed sit to stand from chair min A with initial LOB requiring min A for steadiness. pt was able to stand SBA to CGA using FWW for support and requested to use the urinal. pt ambulated in room using FWW 30 ft CGA and cues for R quads activation. pt sat to rest and ambulated again and sat on chair. educated on sit<>stand technique. Pt's spouse arrived for training. educated on how to use safety belt and how to assist pt and also reviewed hip precautions . pt completed sit <>stand with spouse assisting and ambulated in room 25 ft using FWW with spouse assisting. pt sat back on the chair. call light and table placed within reach. spouse brought in a FWW from home and adjusted for pt. pt and spouse has no other concerns. informed nurse that pt is awaiting dc. Gait Assessment Gait Gait Assistance Required: Contact Guard Assist,1 Person Assist Distance (Feet) 30 Able to Maintain Weight Bearing Status Yes During Gait Assistive Devices Assistive Device Gait Belt,Front Wheeled Walker Orthotic/Prosthetic Devices or Brace: No Gait Deviations General Gait Pattern Antalgic,Decreased Stride Length,Decreased Feet Clearance,Step-to Gait,Wide Based Gait Factors Limiting Gait Function Factors Limiting Gait Function Decreased Activity Tolerance, Decreased Strength,Limited Range of Motion,Pain,Poor Balance,Poor Safety Awareness M5 PT-IP Objective Assessments Start: 06/23/20 12:35 Freq: NEEDED Status: Active Protocol: Document 06/23/20 09:15 AB (Rec: 06/23/20 12:48 AB [email or web address]) Orientation Orientation/Cognition Level of Alertness Alert Orientation Name,Place,Situation Language Function Ability No Deficits Noted Safety Awareness Decreased Safety Awareness Memory Description Short Term Impaired Strength Lower Extremity Strength Assessment Right Impaired Hip 3+/5 Knee 3+/5 Coordination Assessment Gross Coordination Gross Coordination WNL Sensation Assessment Sensation Gross Sensation WNL Muscle Tone Muscle Tone WNL Yes M6 PT-IP Treatment Start: 06/23/20 12:35 Freq: NEEDED Status: Active Protocol: Document 06/23/20 14:00 AB (Rec: 06/23/20 15:11 AB [email or web address]) Physical Therapy Treatment Education Education Provided Precautions,Safety M7 PT-IP Assessment and Plan Start: 06/23/20 12:35 Freq: NEEDED Status: Active Protocol: Document 06/23/20 14:00 AB (Rec: 06/23/20 15:11 AB [id number]) PT Summary Assessment and Plan Potential Rehabilitation Potential Good Summary Impairments Pain,ROM,Strength,Balance, Coordination,Sensation,Tone, Cognition,Bed Mobility, Transfers,Gait,Activity Tolerance Progress Towards Goals Slow Progress due to Medical Issues,Slow Progress due to Activity Tolerance Assessment Summary caregiver training conducted and spouse was able to assist pt safely. pt plans to go home later today. Goals Bed Mobility Goal Minimal Assistance Transfer Goal Standby Assistance,Front Wheeled Walker Gait Goal Standby Assistance,Front Wheel Walker Gait Distance 100 Days to Meet Goals 5 Frequency of Treatment Frequency Of Treatment Twice a Day Treatment Plan Physical Therapy Treatment Plan Bed Mobility Training,Transfer Training,Gait Training, Therapeutic Exercise,Balance Retraining,Post Op Education, Discharge Planning,Hot or Cold Pack,Neuromuscular Re-ed, Coordination Retraining,Manual Therapy Precautions Posterior Hip Precautions No Hip Flexion > 90 degrees,No Hip Internal Rotation,No Hip Adduction Other Precautions RLE WBAT Recommendations To Nursing Amount of Assist Needed 1 Person Assist Discharge Recommendations PT Discharge Recommendations Home with 04/09 Assist Available,Outpatient PT Transportation Needs at Discharge Private Vehicle
--- NOTE | 2020-06-23 15:46 | PC.NURSE ---
Discharge: Pt feels ready to discharge home. Seen by PA and given instructions. Seen by PT and given their instructions. Hemovac removed intact. PIERCE information given and explained. Discussed wound care. Pt reports po pain meds are effective. He understands his medication during anesthesia will wear off and his hip maybe more sore tomorrow, discussed importance of routine use of acetaminophen and ibuprofen as they were instructed pre op. He has his preop info at home. Is following his total knee precautions. Vds w/out diff. Tolerates diet w/out diff. Reviewed d/c packet. Given script. Questions answered. Pt d/c home via auto with spouse.
--- NOTE | 2020-06-23 15:51 | CM.DANOTE ---
DCP/Assessment: Reviewed chart. Patient is a 74yr old male admitted to [facility] for right YULIA performed on 06-22-20. PCP is Viki Reddy. Primary payor is 1)[employer] [place]. Met with patient and spouse/William at bedside explained CM/SW role. Patient reports that he plans to d/c home today. Patient reports that he has all needed DME and plans to do outpatient therapy. Patient with no anticipated d/c planning needs. P: Home today. MANNY Cheng Discharge Planning/Care Management Advanced directive, confirm from FAMILY Start: 06/22/20 15:52 Freq: Q24H Status: Active Protocol: Document 06/22/20 15:52 MS (Rec: 06/22/20 16:06 MS [id number]) Advance Directive, confirm on record Time 16:06 Person contacted william Copy received No Document 06/23/20 07:40 CEW (Rec: 06/23/20 11:59 CEW [id number]) Advance Directive, confirm on record Time 16:06 Person contacted william Copy received No CM Discharge Assessment Start: 06/23/20 15:25 Freq: Status: Active Protocol: Document 06/23/20 15:26 KJS (Rec: 06/23/20 15:51 KJS [id number]) Discharge Planning Assessment Assigned Banking Services Clerk MANNY Cheng Contact Information William Conway (spouse) # Advance Directives? Yes Advance Directives on File No History Provided By Patient,Family Member,Medical Record Prior Living Arrangements RV Household Members spouse Type of transporation used prior to Drives own vehicle admit Independent with ADL's Yes Is patient alert and oriented? Yes Caregiver for Another No DME Already Rented / Owned FWW / Walker Patient/Family Preference OP PT Therapy Comment Patient has outpatient therapy arranged in [place]. Barriers to Discharge No Discharge Plan Home Transportation Arrangement Family to provide transport. Referrals Initiated None needed Whiteboard Updated in Patient Room with Yes name and ext. # of Banking Services Clerk Review Status In Process Next Review Type Continued Stay Review Pre-Anesthesia Assessment Start: 06/18/20 13:08 Freq: Status: Complete Protocol: Document 06/18/20 13:08 CAB (Rec: 06/18/20 14:06 CAB [id number]) Pre-Anesthesia Assessment PAC Comment LT YULIA 11/14/18. Pt declined PAC phone assessement. He had no questions, denies any changes to medical/medication history. Chart review only Patient Information Reviewed Via Chart Review Primary Care Provider Viki Reddy Seen Specialist in Last 12 Months Yes Specialist Seen Orthopedist,Urologist Primary Language Georgian Preferred Language Georgian Diamond Driller Helper Required No Height 175.26 cm Weight 133.356 kg Body Mass Index (BMI) 43.4 Hearing Ability Hard of Hearing,Use of Hearing Aid Visual Assist Glasses Dentition Type Teeth, Natural Present,Teeth, Broken,Partial- Lower Barriers to Learning Auditory,Memory Hx Anesthesia Reactions No Hx Family Anesthesia Reaction No Hx Malignant Hyperthermia No Hx Blood Transfusions No Anesthesia Review Requested No alcohol intake current alcohol intake frequency holidays/special occasions only Smoking Status Former smoker Tobacco type cigarettes how long ago did patient quit smoking Quit 25 years ago Substance Use Type other Pain Present Pain Reported Musculoskeletal Symptoms Abnormal Gait,Back Pain, Difficulty Walking,Joint Pain, Limited Range of Motion,Muscle Weakness History of Falling (Recent or History of No ) Patient is completely paralyzed or No completely immobile Prosthesis or Orthotic Device Cane,Crutches Mental Status Oriented to own ability Is patient on oxygen? No Does patient have MEJIA/SOB Yes Hx Sleep Apnea Yes CPAP/BIPAP use prescribed and used routinely Currently Taking a Beta Marah No Can You Climb a Flight of Stairs Without No SOB Hx Chest Pain No Hx SOB Yes Hx Syncope or Dizziness No Anti-Coagulant Therapy No Has a Tai Chi Instructor No Cardiac Testing Yes: Lexiscan @ [facility] 05/21/18-low risk, EF 61% Hx Pacemaker/ICD No Pacemaker Rep Required? No Cardiac Clearance Received Not Applicable Diet Type At Home Regular dysphagia No Urinary Catheter Present No Hx Urinary Self Catheterization No Diabetes No Hx Drug Resistant Organism No Presence of External or Internal Medical Yes: CPAP, left hip Devices Marital Status Lives With spouse Prior Living Arrangements RV Support System Child/Children,Spouse Patient Discharge Plan Description Return Home Feels Safe in Current Environment Yes Been Physically Hurt or Threatened By a No Person in Current Environment Do you have thoughts of harming yourself None or others? Are you currently considering suicide? No Do you have a plan to hurt yourself or No Plan others? Do You Have Any Spiritual Beliefs That No May Affect Your HC Choices? Do You Have Any Cultural Practices That No May Affect Your HC Choices? Who Can We Speak to About Patient's Care Family, friends Identifying Code for Release of Patient Declines to issue Information Health Care Proxy/Next of Kin William () Health Care Proxy Emergency Contact Name William () Emergency Contact Advance Directives? Yes Advance Directives on File No
== END 2020-06-23 14:45 | disposition home or self-care (01) ==
LOC: OR 08:11 → AC 15:34
PROVIDERS: PCP Family Medicine; Referring Provider Orthopaedic Surgery; Visit Provider Orthopaedic Surgery
PROC: 0SR90JZ Replacement of Right Hip Joint with Synthetic Substitute, Open Approach (ICD-10-PCS; CPT 27130; principal; 2020-06-22 10:45)
DX: M16.11 Unilateral primary osteoarthritis, right hip (principal); M87.051 Idiopathic aseptic necrosis of right femur; E66.01 Morbid (severe) obesity due to excess calories; Z68.41 Body mass index [BMI] 40.0-44.9, adult; I10 Essential (primary) hypertension; E78.5 Hyperlipidemia, unspecified; G47.33 Obstructive sleep apnea (adult) (pediatric); F32.9 Major depressive disorder, single episode, unspecified; N40.0 Benign prostatic hyperplasia without lower urinary tract symptoms; Z20.822 Contact with and (suspected) exposure to COVID-19
CPT/HCPCS: 27130; 72170; 73502; 85014; 85018; 87635; 97116; 97162; 97530; C1776; C9290; J0690; J1100; J1170; J2250; J2405; J2704; J3010